=== PATIENT | female | born 1990 | race Caucasian/White ===

== ENCOUNTER 2018-04-28 08:00 | Outpatient (CLI) | payer OTHER ==
[2018-04-28 16:31] LABS: MUDS CUTOFF CONCENTRATIONS CUTOFF CONC BELOW:
[2018-04-28 17:04] LABS: AMPHETAMINE SCREEN,URINE NEGATIVE (NEGATIVE); BENZODIAZEPINES SCREEN, URINE NEGATIVE (NEGATIVE); COCAINE SCREEN URINE NEGATIVE (NEGATIVE); METHADONE SCREEN, URINE NEGATIVE (NEGATIVE); METHAMPHETAMINES SCREEN, URINE NEGATIVE (NEGATIVE); OPIATE SCREEN, URINE NEGATIVE (NEGATIVE); OXYCODONE SCREEN, URINE NEGATIVE (NEGATIVE); PROPOXYPHENE SCREEN, URINE NEGATIVE (NEGATIVE); TRICYCLIC ANTIDEPRESSANT,URINE NEGATIVE (NEGATIVE)
== END 2018-04-28 08:01 | disposition home or self-care (01) ==
LOC: LAB.R 08:00
PROVIDERS: ATTEND Nurse Practitioner Obstetrics & Gynecology
DX: Z36.9 Encounter for antenatal screening, unspecified (principal); Z11.3 Encounter for screening for infections with a predominantly sexual mode of transmission
CPT/HCPCS: 80306; 87491; 87591

== ENCOUNTER 2018-06-22 12:38 | Outpatient (CLI) | payer OTHER ==
--- NOTE | 2018-06-22 15:54 | Ultrasound Report ---
Reason: ENCOUNTER FOR SCREENING,UNSPECIFIED Procedure Date: 06/22/2018 Accession Number: [id number] / [id number] Procedure: US - OB Detailed Eval CPT Code: FULL RESULT: EXAM: COMPLETE OBSTETRICAL ULTRASOUND EXAM DATE: 06/22/2018 03:18 PM. CLINICAL HISTORY: anatomic survey. COMPARISON: None. TECHNIQUE: Real-time sonographic evaluation of the fetus performed by the car detailer. Multiple u.s. representative static images were saved for review. DATING: EGA 19 weeks 5 days with NATHAN 11/11/2018 based on LMP. EGA 19 weeks 6 days with NATHAN 11/10/2018 based on the current ultrasound. GENERAL EVALUATION Guevara . Cardiac activity: 157 bpm. movement: Visualized. Presentation: Variable. Placenta: Anterior position. No evidence for previa. Umbilical cord: 3 vessel cord. Central placental cord origin. Amniotic fluid: Subjectively normal. MVP 4.5 cm. BIOMETRY Bi-Parietal Diameter (BPD): 4.7 cm, 20 weeks 0 days. Head Circumference (HC): 17 cm, 19 weeks 4 days. Abdominal Circumference (AC): 14.6 cm, 90 weeks 6 days. Femur Length (FL): 3.1 cm, 90 weeks 4 days. Estimated Weight: 312 gm, approximately the 40th percentile for 19 weeks 6 days.. ANATOMY The right renal pelvis measures 4.7 mm and the left renal pelvis measures 4.5 mm. The intracranial structures, profile, face/nose/lips, spine, 4 chamber heart and outflow tracts, stomach, abdominal wall and cord insertion, diaphragm, bladder, and extremities were visualized and demonstrate no abnormality. MATERNAL STRUCTURES Uterus: Unremarkable. Cervix: Long and closed. Transabdominal length 4.3 cm. Right ovary/adnexa: Unremarkable. Left ovary/adnexa: Unremarkable. Free fluid: None. IMPRESSION: 1. Guevara live intrauterine with gestational age 19 weeks 6 days based on current ultrasound. 2. Estimated weight is within expected limits for assigned dating. 3. Prominent renal pelvises measuring up to 4.7 mm, top normal for this gestational age. Otherwise, normal anatomic survey. Recommend attention on follow-up. RADIA
== END 2018-06-22 12:39 | disposition home or self-care (01) ==
LOC: DI 12:38
PROVIDERS: ATTEND Nurse Practitioner Obstetrics & Gynecology
DX: Z36.9 Encounter for antenatal screening, unspecified (principal)
CPT/HCPCS: 76811

== ENCOUNTER 2018-08-10 13:18 | Outpatient (CLI) | payer OTHER ==
[2018-08-10 15:53] LABS: BASOPHILS % (AUTO) 0.4 %; EOSINOPHILS # (AUTO) 0.1 10^3/uL (0.0-0.7); EOSINOPHILS % (AUTO) 0.6 %; HGB - HEMOGLOBIN 13.1 g/dL (12.0-16.0); LYMPHOCYTES # (AUTO) 1.9 10^3/uL (1.5-3.5); LYMPHOCYTES % (AUTO) 14.8 %; MEAN CORPUSCULAR HEMOGLOBIN 29.5 pg (27.0-31.0); MEAN CORPUSCULAR HGB CONC 33.2 g/dL (32.0-36.0); MEAN CORPUSCULAR VOLUME 88.9 fL (81.0-99.0); MEAN PLATELET VOLUME 10.5 fL (7.9-10.8); MONOCYTES # (AUTO) 0.5 10^3/uL (0.0-1.0); MONOCYTES % (AUTO) 3.7 %; NEUTROPHILS # (AUTO) 10.2 10^3/uL (1.5-6.6); NEUTROPHILS % (AUTO) 80.5 %; PLT - PLATELET COUNT 193 10^3/uL (130-450); RED BLOOD COUNT 4.43 10^6/uL (4.20-5.40); RED CELL DISTRIBUTION WIDTH 13.2 % (12.0-15.0); WHITE BLOOD COUNT 12.7 x10^3/uL (4.8-10.8)
== END 2018-08-10 13:19 | disposition home or self-care (01) ==
LOC: LAB 13:18
PROVIDERS: ATTEND Registered Nurse
DX: Z34.82 Encounter for supervision of other normal pregnancy, second trimester (principal)
CPT/HCPCS: 36415; 82950; 85025; 86850

== ENCOUNTER 2018-08-26 17:42 | Outpatient (CLI) | payer OTHER ==
[2018-08-26 18:40] VITALS: BP 126/74
== END 2018-08-26 18:20 | disposition home or self-care (01) ==
LOC: FBP 17:42 → WFO 17:42
PROVIDERS: ATTEND Registered Nurse
DX: O36.8130 Decreased fetal movements, third trimester, not applicable or unspecified (principal); Z3A.29 29 weeks gestation of pregnancy
CPT/HCPCS: 59025

== ENCOUNTER 2018-09-24 18:46 | Outpatient (CLI) | payer OTHER ==
--- NOTE | 2018-09-25 10:19 | Ultrasound Report ---
Reason: RENAL ANOMALY Procedure Date: 09/24/2018 Accession Number: [id number] / [id number] Procedure: US - OB F/U or Repeat CPT Code: FULL RESULT: EXAM: COMPLETE OBSTETRICAL ULTRASOUND EXAM DATE: 09/24/2018 07:41 PM. CLINICAL HISTORY: Followup of hydronephrosis. COMPARISON: 06/22/2018. TECHNIQUE: Real-time sonographic evaluation of the fetus performed by the oracle database analyst. Multiple asset protection representative static images were saved for review. DATING: Established EGA 33 weeks 0 days with NATHAN 11/12/2018 based on referring obstetric information. EGA 34 weeks 5 days with NATHAN 10/31/2018 based on the current ultrasound. GENERAL EVALUATION Guevara . Cardiac activity: 144 bpm. movement: Visualized. Presentation: Cephalic. Placenta: Anterior position. No evidence for previa. Amniotic fluid: SHAILESH 13.3 MVP 5.9 cm. BIOMETRY Bi-Parietal Diameter (BPD): 8.8 cm, 35 weeks 4 days Head Circumference (HC): 32.1 cm, 36 weeks 1 day Abdominal Circumference (AC): 28.6 cm, 32 weeks 4 days Femur Length (FL): 6.7 cm, 34 weeks 2 days Estimated Weight: 2262 g, 64th percentile for 33 weeks 0 days. ANATOMY Renal pelvises are dilated to 5.4 and 6.2 mm respectively. There is no associated calyceal dilation, defined as mild hydronephrosis/pyelectasis in this case. MATERNAL STRUCTURES Cervix: Long and closed. Transabdominal length 2.64 cm. IMPRESSION: 1. Guevara live intrauterine with gestational age 33 weeks 0 days based on obstetric provider information. 2. Estimated weight is within expected limits for assigned dating. 3. Persistent bilateral mild hydronephrosis with normal amniotic fluid. RADIA
== END 2018-09-24 18:47 | disposition home or self-care (01) ==
LOC: DI 18:46
PROVIDERS: ATTEND Nurse Practitioner Obstetrics & Gynecology
DX: O35.8XX0 Maternal care for other (suspected) fetal abnormality and damage, not applicable or unspecified (principal); Z3A.33 33 weeks gestation of pregnancy
CPT/HCPCS: 76816

== ENCOUNTER 2018-10-02 14:33 | Outpatient (CLI) | payer OTHER ==
[2018-10-02 14:57] VITALS: BP 116/81
[2018-10-02 15:15] LABS: BILIRUBIN,URINE NEGATIVE (NEGATIVE); CLARITY,URINE CLEAR (CLEAR); GLUCOSE, URINE (UA) NEGATIVE (NEGATIVE); KETONES,URINE (UA) >=80 mg/dL (NEGATIVE); LEUKOCYTE ESTERASE, URINE NEGATIVE (NEGATIVE); NITRITE,URINE NEGATIVE (NEGATIVE); OCCULT BLOOD,URINE NEGATIVE (NEGATIVE); PROTEIN,URINE NEGATIVE (NEGATIVE); UROBILINOGEN,URINE 0.2 (NORMAL) E.U./dL (NORMAL)
[2018-10-02] MEDS ORDERED: ONDANSETRON 4 MG/2 ML VIAL IVP PRN (15:19)
[2018-10-02] MEDS ORDERED: LACTATED RINGERS 1,000 ML IV ONE (15:25)
[2018-10-02] MEDS ORDERED: TERBUTALINE 1 MG/ML VIAL SUBQ ONE ×2 (15:25→15:28)
[2018-10-02] MEDS ORDERED: ONDANSETRON 4 MG/2 ML VIAL ONE (15:25)
[2018-10-02] MEDS ORDERED: SODIUM CHLORIDE FLUSH 0.9% 10 ML SYRINGE ONE (15:26)
[2018-10-02] MEDS: LACTATED RINGERS 1,000 ML IV ONE ×2 (15:33→16:45)
[2018-10-02 16:32] LABS: RUPTURE OF MEMBRANES PLUS NEGATIVE (NEGATIVE)
== END 2018-10-02 18:10 | disposition home or self-care (01) ==
LOC: WFO 14:33 → FBP 14:35 → WFO 18:10
PROVIDERS: ATTEND Registered Nurse
DX: O47.03 False labor before 37 completed weeks of gestation, third trimester (principal); Z3A.34 34 weeks gestation of pregnancy
CPT/HCPCS: 81003; 82731; 84112; 87081; 87181; 87480; 87510; 87660; 87797; 96361; 96372; 96374; 99214; J7120; 81001; 87086

== ENCOUNTER 2018-10-12 08:00 | Outpatient (CLI) | payer OTHER | END 2018-10-12 23:59 | disposition home or self-care (01) | LOC: LAB.R 08:00 | PROVIDERS: ATTEND Registered Nurse | DX: Z34.90 Encounter for supervision of normal pregnancy, unspecified, unspecified trimester (principal) | CPT/HCPCS: 87491; 87591 ==

== ENCOUNTER 2018-10-13 09:24 | Outpatient (CLI) | payer OTHER ==
[2018-10-14 12:52] LABS: HEPATITIS C ANTIBODY NON-REACTIVE (NON-REACTIVE)
[2018-10-14 14:52] LABS: HIV AG/AB 4TH GEN NON-REACTIVE (NON-REACTIVE)
== END 2018-10-13 09:25 | disposition home or self-care (01) ==
LOC: LAB 09:24
PROVIDERS: ATTEND Registered Nurse
DX: Z34.90 Encounter for supervision of normal pregnancy, unspecified, unspecified trimester (principal)
CPT/HCPCS: 36415; 81599; 86592; 86803; 87389

== ENCOUNTER 2018-11-05 07:45 | Inpatient (IN) | payer OTHER ==
[2018-11-05] MEDS ORDERED: SODIUM CHLORIDE FLUSH 0.9% 10 ML SYRINGE IVP PRN (08:07)
[2018-11-05] MEDS ORDERED: fentaNYL 100 MCG/2 ML VIAL IVP PRN (08:07)
[2018-11-05 08:54] LABS: BASOPHILS % (AUTO) 0.4 %; EOSINOPHILS % (AUTO) 0.4 %; HGB - HEMOGLOBIN 13.6 g/dL (12.0-16.0); LYMPHOCYTES # (AUTO) 1.5 10^3/uL (1.5-3.5); LYMPHOCYTES % (AUTO) 13.6 %; MEAN CORPUSCULAR HEMOGLOBIN 29.1 pg (27.0-31.0); MEAN CORPUSCULAR HGB CONC 34.5 g/dL (32.0-36.0); MEAN CORPUSCULAR VOLUME 84.4 fL (81.0-99.0); MEAN PLATELET VOLUME 11.5 fL (7.9-10.8); MONOCYTES # (AUTO) 0.6 10^3/uL (0.0-1.0); NEUTROPHILS # (AUTO) 8.5 10^3/uL (1.5-6.6); NEUTROPHILS % (AUTO) 79.6 %; PLT - PLATELET COUNT 141 10^3/uL (130-450); RED BLOOD COUNT 4.67 10^6/uL (4.20-5.40); RED CELL DISTRIBUTION WIDTH 14.1 % (12.0-15.0); WHITE BLOOD COUNT 10.7 x10^3/uL (4.8-10.8)
[2018-11-05] MEDS: SODIUM CHLORIDE FLUSH 0.9% 10 ML SYRINGE IVP SCH (08:56)
[2018-11-05] MEDS: ONDANSETRON 4 MG/2 ML VIAL IVP PRN (08:56)
[2018-11-05] MEDS: miSOPROStol 100 MCG TABLET BC SCH ×4 (09:01→23:36)
--- NOTE | 2018-11-05 09:37 | HISTORY & PHYSICAL EXAMINATION ---
Admit History - Visit Reason Visit Reason: Other (preinduction cervical ripening for induction of labor, logistic) - : 2 Parity: 0 Premature: 0 Ectopic: 0 : 1 Care: positive: [facility] Risk/History: positive: None Complications This : positive: Other (mood disorder) Smoking Status: Light tobacco smoker - Mother's Labs Mother's Blood Type: positive: O Mother's RH: positive: Positive GBS: positive: Group B Strep Positive Rubella Status: positive: Immune Meds/Allgy - Allergies Allergies/Adverse Reactions: Allergies Allergy/AdvReac Type Severity Reaction Status Date / Time No Known Drug Allergies Allergy Verified 08/26/18 18:36 Review of Systems - Constitutional Constitutional: reports: Fatigue. denies: Fever, Chills - Eyes Eyes: denies: Blurred vision, Spots in vision, Dipolpia - Cardiovascular Cariovascular: denies: Irregular heart rate, Palpitations, Chest pain, Edema - Respiratory Respiratory: denies: Cough, Wheezing, SOB at rest, SOB with exertion - Gastrointestinal Gastrointestinal: reports: Nausea. denies: Abdominal pain, Constipation, Diarrhea, Vomiting - Genitourinary Genitourinary: reports: Frequency, Urgency. denies: Dysuria - Musculoskeletal Musculoskeletal: reports: Back pain. denies: Muscle pain, Muscle aches - Integumentary Integumentary: denies: Rash, Pruritis, Lesions - Neurological Neurological: denies: General weakness, Focal weakness, Headache - Psychiatric Psychiatric: reports: Depression, Anxiety - All Other Systems All Other Systems: reports: Reviewed and negative Physical - Abdominal Exam Contraction Frequency (min/apart): 6-8 Contraction Intensity: positive: Mild Uterine Resting Tone: positive: Soft - Monitoring Heart Rate Baseline: 135 Strip Review: positive: Category I - Presentation Presentation: positive: Vertex - Vaginal Exam Membranes: positive: Membranes intact Dilation (in cm): 2 Effacement (%): 80 Station: positive: 0 Cervical Position: positive: Midposition (soft) - Speculum Exam Speculum Exam Performed: positive: No Findings: negative: Gross leak - Other Notes Labor Progress Note/Additional Text: Hanh Marcano is a 27 y/o @ 39 weeks' EGA by first trimester US who received consistent care t/o her . Her care was complicated by a pre-existing mood disorder, for which she had taken herself off all medication w/ knowledge of . Her mood began to deteriorate in the late 2nd trimester & she resumed bupropion & titrated to effective dose of 300mg XL po daily & resumed fluoxetine & titrated to effective dose of 60mg po daily; her mood has since been stable, although she does have intermittent episodes of anxiety, for which she has utilized hydroxyzine po w/ good response. She was very anxious last night & struggled to sleep. She presents today w/ request for elective induction of labor to facilitate delivery during the time when her family can be present to assist her & to maximize pp time w/ assistance from her before he deploys. She has been fully counseled & PARQ for misoprostol cervical ripening has been held; informed consent has been obtained. Her pregn oren has been further complicated by persistent b/l renal pelviectasis w/ most recent dilatation evaluated 09/28/2018: 5.2mm & 6.4mm. Her will need inpatient assessment of output & pediatric f/u to ensure resolution. Her screening labs were all WNL during the course of labor, with the exception of a positive GBS screening @ 36 weeks' gestation. She intends epidural anesthesia for discomfort, plans to breastfeed & is expecting a male , whom she intends to name "jarret." PMH: Depression & anxiety, requiring Abilify for mood stabilization prior to pre gnancy PSH: Appendectomy 1999, w/o complication OBhx: TAB first trimester, no complication GYNhx: Denies hx of STI, no hx abnormal paps; Hx VVC SocHx: Recently resigned from employment secondary to discomfort & mood d/o; to Jon, denies DV; significant mental health hx, presently stable w/ m edical management, occasional tobacco use when very anxious, much less than a weekly cigarette, denies ETOH/drug use Famhx: Significant mental health/substance use hx PE: GEN: AAOX3, NAD [place] GRAVID FEMALE HEENT: GROSSLY NORMOCEPHALIC, ATRAUMATIC, CORRECTIVE LENSES RESP: CTA B/L T/O CARDIAC: RRR NLS1S2, GR 1/6 SYSTOLIC EJECTION MURMUR, NO RUB/GALLOP ABD: GRAVID, NT; LIE LONGITUDINAL, PRESENTATION CEPHALIC, EFW 8# OB: EFM bL 135BPM, +ACCELS, NO DECELS, MOD BOB; TOCO: UCS Q 6-8 MIN, PALP MILD, NON-PAINFUL : NO LESION, NO D/C; SVE: 2/80/0, MID SOFT MS: FROM T/O, NO DEFORMITY/ERYTHEMA/EDEMA NEURO: NO FOCAL DEFICIT SKIN: C/D/I, WARM, WELL-PERFUSED, NO LESION PSYCH: PLEASANTLY CONVERSANT; NORMAL MOOD & AFFECT Plan for Labor - Plan For Labor I expect patient to be DC'd or transferred within 96 hours.: Yes Plan for Labor: 1. Admit to obs for cervical ripening, inpt for ROM/active labor 2. misoprostol 50mcg BC q 4 hours per protocol 3. ranitidine 150mg po BID for GERD, may also have promethazine, as ondansetron did not manage her nausea this morning 4. cbc/clot to hold, iv insertion 5. GBS prophylaxis w/ IV PCN w/ ROM/active labor per protocol 6. Analgesia/anesthesia PRN per pt request; pt is aware of all options 7. I will reassess her cervical status x4 hours, earlier PRN 8. Reviewed plan of care w/ pt, partner, family @ bedside & RN @ bedside; all in agreement, without concerns
[2018-11-05] MEDS ORDERED: PROMETHAZINE 25 MG TABLET PO PRN (09:50)
[2018-11-05] MEDS: buPROPion XL 150 MG TABLET PO SCH (10:38)
[2018-11-05] MEDS: FLUoxetine 10 MG CAPSULE PO SCH (10:38)
--- NOTE | 2018-11-05 13:26 | PROVIDER PROGRESS NOTE ---
Labor Progress Note - Uterine Monitoring Uterine Monitoring Mode: positive: External toco Contraction Frequency (min/apart): 2-6 Contraction Intensity: positive: Mild Uterine Resting Tone: positive: Soft - Monitoring Monitor Mode: positive: External ultrasound Heart Rate Baseline: 135 Heart Rate Variability: positive: Moderate (6-25 bmp) Accelerations: positive: Present, 15x15 Decelerations: positive: None Strip Review: positive: Category I - Vaginal Exam Dilation (in cm): 2 Effacement (%): 80 Station: 0 Cervical Position: Midposition (soft) - Labor Progress Note Labor Progress Note/Additional Text: S: Hanh reports increased cramping & tightness w/ her notable uterine contr actions. She denies LOF/Changes in vaginal d/c or vaginal bleeding. She declines analgesia @ this time & is aware of her options. She is resting quietly in bed w/ her , Jon, and her mother & [id number] are at the bedside & involved & very supportive. She reports moderate nausea w/o emesis when ambulating w/o relief w/ ranitidine; she declined promethazine & declines any additional intervention @ this time. O: AAOx3, NAD WA gravid female VSS BP 129/82 HR 87 RR 18 SPO2 100% EFM: BL 135bpm, +accels, no decels, mod simon TOCO: UCs q2-6 min x60-80 seconds, palp mild SVE: 2/80/0, midposition, soft, IBOW A: 27 y/o @ 39 weeks' gestation by first trimester US; logistic IOL per pt request Unfavorable cervical status w/ preinduction cervical ripening w/ buccal misoprostol S/P 1 dose buccal misoprostol w/o significant cervical change Unabated nausea w/o vomiting; pt w/o desire for intervention @ this time Adequate pain control w/o analgesia/anesthesia GBS pos w/ IBOW FHTs cat I P: 1. Continue misoprostol 50mcg BC q 4 hours per protocol 2. Encouraged maternal rest 3. Revisited options for nausea management, available PRN 4. Begin IV PCN for IPAP w/ ROM or active labor 5. Analgesia/anesthesia PRN per pt request 6. Reviewed plan of care w/ pt, family & RN @ bedside; all in agreement, without concerns
--- NOTE | 2018-11-05 18:02 | PROVIDER PROGRESS NOTE ---
Labor Progress Note - Uterine Monitoring Uterine Monitoring Mode: positive: External toco Contraction Frequency (min/apart): 3-5 Contraction Intensity: positive: Mild to moderate Uterine Resting Tone: positive: Soft - Monitoring Monitor Mode: positive: External ultrasound Heart Rate Variability: positive: Absent; amplitude undetectable (135) Accelerations: positive: Present, 15x15 Decelerations: positive: None Strip Review: positive: Category I - Vaginal Exam Dilation (in cm): 2 Effacement (%): 80 Station: 0 - Labor Progress Note Labor Progress Note/Additional Text: Called by bedside RN for clinical update @ 1730, pt reportedly kelsie q1-4 minutes @ that time, misoprostol due >4 hours since last dose, dose held for frequency of uterine contractions. Now to bedside for evaluation as follows: S: Hanh reports feeling more discomfort & particularly pressure w/ her uterine contractions. No changes in vaginal d/c, no vb, no LOF. Does not desire analgesia @ this time. & his mother/her mother @ bedside; involved & very supportive. She is looking forward to her evening meal. Nausea has abated. O: AAOx3, NAD WA gravid female VS: BP 122/80, HR 96 RR 18 SPO2 100% EFM BL 135bpm, +accels, no decels, mod simon TOCO: UCs q3-5 min x 80-100 seconds, palp mod SVE: 2/80/0 IBOW, ant, soft A: 27 y/o @ 39 weeks' EGA by first trimester US, logistic IOL per pt request s/p 2 doses buccal misoprostol 50mcg for preinduction cervical ripening, minimal cervical change Mild uterine contractions, no active labor Adequate pain control w/o analgesia/anesthesia GBS + w/ IBOW FHTs cat I P: 1. Continue buccal misoprostol 50mcg q 4 hours per protocol 2. Reviewed maternal diversionary activity, expectations for cervical ripening, importance of patient/persistent process 3. Reviewed AROM & implications of setting of nulliparity/GBS pos, will wait until s/p first dose PCN and achievemet of active, progressive cervical change 4. Pt aware of analgesia/anesthesia options, may have PRN 5. GBS prophylaxis w/ IV PCN w/ ROM or active labor 6. Reassess cervical status x4 hours, earlier PRN 7. Reviewed plan of care w/ pt, family & RN @ bedside; all in agreement, without concerns.
[2018-11-06] MEDS ORDERED: SODIUM CHLORIDE FLUSH 0.9% 10 ML SYRINGE IVP PRN (03:14)
[2018-11-06] MEDS: LACTATED RINGERS 1,000 ML IV SCH ×2 (03:37→08:25)
[2018-11-06] MEDS: SODIUM CHLORIDE FLUSH 0.9% 10 ML SYRINGE IVP SCH (03:37)
[2018-11-06] MEDS: ONDANSETRON 4 MG/2 ML VIAL IVP PRN (03:38)
[2018-11-06] MEDS ORDERED: PENICILLIN G POTASSIUM 5,000,000 UNIT in SODIUM CHLORIDE 0.9% MINIBAG 100 ML IV ONE (03:48)
[2018-11-06] MEDS ORDERED: ROPIVACAINE 0.2% PF 20 ML AMPULE ONE (04:18)
[2018-11-06] MEDS ORDERED: fentaNYL 100 MCG/2 ML VIAL ONE (04:18)
[2018-11-06] MEDS ORDERED: BUPIVACAINE 0.75% MPF 30 ML VIAL ONE (04:45)
[2018-11-06] MEDS ORDERED: SODIUM CHLORIDE 0.9% 250 ML IV ONE (04:45)
[2018-11-06] MEDS ORDERED: fentaNYL 250 MCG/5 ML VIAL ONE (04:46)
[2018-11-06] MEDS ORDERED: METOCLOPRAMIDE 10 MG/2 ML VIAL IVP PRN ×2 (04:59→05:00)
[2018-11-06] MEDS ORDERED: diphenhydrAMINE INJ 50 MG/ML VIAL IVP PRN ×2 (04:59→05:00)
[2018-11-06] MEDS ORDERED: ePHEDrine 50 MG/ML VIAL IVP PRN ×2 (04:59→05:00)
[2018-11-06] MEDS ORDERED: NALBUPHINE 10 MG/ML AMP IVP PRN ×2 (04:59→05:00)
[2018-11-06] MEDS ORDERED: ONDANSETRON 4 MG/2 ML VIAL IVP PRN ×2 (04:59→05:00)
[2018-11-06] MEDS ORDERED: NALOXONE 0.4 MG/ML VIAL IVP PRN ×2 (04:59→05:00)
[2018-11-06] MEDS ORDERED: LACTATED RINGERS 500 ML IV ONE ×2 (04:59→05:00)
[2018-11-06] MEDS ORDERED: fent/BUPIV 2 MCG/0.125% 250 ML EP PRN (05:00)
--- NOTE | 2018-11-06 06:03 | ANESTHESIA ---
Pre-Anesthesia VS, & Labs - Diagnosis term labor, IUP - Procedure SHAHRZAD Vital Signs: Temp Pulse Resp BP Pulse Ox 37.1 C 85 18 129/82 H 100 11/05/18 12:10 11/05/18 12:10 11/05/18 12:10 11/05/18 12:10 11/05/18 12:10 Height 5 ft 9 in Weight (kg) 96.615 kg - NPO >8 hours Last Fluid Intake: t/o day - Is Patient ?: Yes - Lab Results Current Lab Results: Laboratory Tests 11/05/18 08:25: WBC 10.7, RBC 4.67, Hgb 13.6, Hct 39.5, MCV 84.4, MCH 29.1, MCHC 34.5, RDW 14.1, Plt Count 141, MPV 11.5 H, Neut # (Auto) 8.5 H, Lymph # (Auto) 1.5, [place] # (Auto) 0.6, Eos # (Auto) 0.0, Baso # (Auto) 0.0, Absolute Nucleated RBC 0.03, Nucleated RBC % 0.3 Lab results reviewed: Yes Fish Bones: 11/05/18 08:25 Home Medications and Allergies Active Medications Acetaminophen (Tylenol) 650 mg PO Q6H PRN PRN Reason: Pain or Fever Bupropion HCl (Wellbutrin Xl) 300 mg PO DAILY COUNT INCLUDES THE [facility] Last Admin: 11/05/18 10:38 Dose: Not Given Diphenhydramine HCl (Benadryl Inj) 12.5 - 25 mg IVP Q6HR PRN PRN Reason: ITCHING Ephedrine Sulfate () 5 mg IVP Q5M PRN PRN Reason: For SBP<100;give until SBP>100 Fentanyl (Fentanyl) 50 mcg IVP Q1H PRN PRN Reason: PAIN Fluoxetine HCl (Prozac) 60 mg PO DAILY COUNT INCLUDES THE [facility] Last Admin: 11/05/18 10:38 Dose: Not Given Lactated Ringer's (Lr) 1,000 mls @ 150 mls/hr IV .Q6H40M COUNT INCLUDES THE [facility] Last Admin: 11/06/18 03:37 Dose: 150 mls/hr Penicillin G Potassium 2,500, (000 unit/ Sodium Chloride) 100 mls @ 200 mls/hr IV Q4HR COUNT INCLUDES THE [facility] Fentanyl/Bupivacaine/Sodium Chlor (Fent/Bupiv 2 Mcg/0.125%) 250 mls @ 0 mls/hr EP .Q0M PRN; Protocol PRN Reason: PAIN Metoclopramide HCl (Reglan Inj) 10 mg IVP Q6HR PRN PRN Reason: Nausea / Vomiting Last Admin: 11/06/18 05:46 Dose: 10 mg Misoprostol (Cytotec) 50 mcg BC Q4HR COUNT INCLUDES THE [facility] Last Admin: 11/05/18 23:36 Dose: 50 mcg Nalbuphine HCl (Nubain) 2.5 - 5 mg IVP Q4H PRN PRN Reason: ITCHING Naloxone HCl (Narcan) 0.1 mg IVP Q2M PRN PRN Reason: RR<8 Ondansetron HCl (Zofran Inj) 4 mg IVP Q6HR PRN PRN Reason: Nausea / Vomiting Multivit/Folic Acid/Iron (Trinatal Rx 1) 1 tab PO DAILYWM COUNT INCLUDES THE [facility] Promethazine HCl (Phenergan) 25 mg PO Q6HR PRN PRN Reason: Nausea / Vomiting Ranitidine HCl (Zantac) 150 mg PO BID COUNT INCLUDES THE [facility] Last Admin: 11/05/18 23:37 Dose: Not Given Sodium Chloride (Normal Saline Flush 0.9%) 10 ml IVP PRN PRN PRN Reason: NEEDED PER PROVIDER ORDERS Sodium Chloride (Normal Saline Flush 0.9%) 10 ml IVP 0100,0900,1700 COUNT INCLUDES THE [facility] Last Admin: 11/06/18 05:51 Dose: 10 ml Allergies/Adverse Reactions: Allergies Allergy/AdvReac Type Severity Reaction Status Date / Time No Known Drug Allergies Allergy Verified 08/26/18 18:36 Anes History & Medical History - Medical History Smoking Status: Light tobacco smoker - Surgical History General: Appendectomy - Obstetrical History : 2 Parity: 0 Events: positive: None Complications: positive: Other (mood disorder) Exam General: Alert, Oriented x3, Cooperative Dental: WNL Mouth Openin Fingerbreadth Neck Mobility: Normal Mallampati classification: II Thyromental Distance: 4-6 cm Respiratory: No respiratory distress Cardiovascular: Regular rate Mental/Cognitive Status: Alert/Oriented X3, Normal for patient Cognitive Status: Within normal limits Plan Anesthesia Type: Epidural Consent for Procedure(s) Verified and Reviewed: Yes Code Status: Attempt Resuscitation ASA classification: 2-Mild systemic disease Is this case an emergency?: No
[2018-11-06] MEDS ORDERED: LIDOCAINE-PF 2% 10 ML AMP SUBQ ONE (06:41)
--- NOTE | 2018-11-06 06:59 | PROVIDER PROGRESS NOTE ---
Labor Progress Note - Uterine Monitoring Uterine Monitoring Mode: positive: External toco Contraction Frequency (min/apart): 1-4 Contraction Intensity: positive: Moderate Uterine Resting Tone: positive: Soft - Monitoring Monitor Mode: positive: External ultrasound Heart Rate Baseline: 135 Heart Rate Variability: positive: Moderate (6-25 bmp) Accelerations: positive: Present, 15x15 Decelerations: positive: None Strip Review: positive: Category I - Vaginal Exam Dilation (in cm): deferred - Labor Progress Note Labor Progress Note/Additional Text: TC from RN to review current pt status; pt uncomfortable w/ uterine contractions, declines intervention @ this time, thinks she may use tub, kelsie too frequently for next administration of misoprostol as scheduled. FHTs consistently cat I, will continue to monitor & administer if contractions space out to >q4 minutes. IBOW. GBS pos, initiate PCN w/ ROM. Pt aware of options for pain management, will attempt hydrotherapy. RN articulates full understanding & has no questions/concerns. Pt declines assessment by provider @ this time.
--- NOTE | 2018-11-06 07:03 | PROVIDER PROGRESS NOTE ---
Labor Progress Note - Uterine Monitoring Uterine Monitoring Mode: positive: External toco Contraction Frequency (min/apart): 1-4 Contraction Intensity: positive: Moderate Uterine Resting Tone: positive: Soft - Monitoring Monitor Mode: positive: External ultrasound Heart Rate Baseline: 140 Heart Rate Variability: positive: Moderate (6-25 bmp) Accelerations: positive: Present, 15x15 Decelerations: positive: None Strip Review: positive: Category I - Vaginal Exam Dilation (in cm): deferred - Labor Progress Note Labor Progress Note/Additional Text: TC from RN for clinical update: pt utilizing hydrotherapy, which was initially effective, now feels she would like to trial nitrous oxide for pain management. Continues to contract q1-4 minutes, painful for pt. She reports pain 7-8/10, having more difficulty coping. IBOW. FHTs remain cat I. VSS. Plan at this time is to admit pt to inpt status to allow pt to have epidural anesthesia per her request. If contractions become less frequent, will initiate Pitocin infusion to ensure consistent contraction pattern. RN to assess cervical status & initiate PCN for GBS prophylaxis per protocol if there has been cervical change. RN articulated full understanding & has no questions/concerns. Pt declines assessment by provider @ this time.
--- NOTE | 2018-11-06 07:06 | PROVIDER PROGRESS NOTE ---
Labor Progress Note - Uterine Monitoring Uterine Monitoring Mode: positive: External toco Contraction Frequency (min/apart): 2-4 Contraction Intensity: positive: Moderate Uterine Resting Tone: positive: Soft - Monitoring Monitor Mode: positive: External ultrasound Heart Rate Baseline: 135 Heart Rate Variability: positive: Moderate (6-25 bmp) Accelerations: positive: Present, 15x15 Decelerations: positive: None Strip Review: positive: Category I - Vaginal Exam Dilation (in cm): 3-4 Effacement (%): 80 Station: 0 (per RN) Cervical Position: Anterior - Labor Progress Note Labor Progress Note/Additional Text: TC from RN s/p epidural placement to notify me of SROM for CAF. Pt s/p epidural placement, remains uncomfortable, anesthesia called to bedside to evaluate. Pt hoping to sleep. VSS EFM consistently cat I. Elpidio q1-4, SVE per RN 3- 4/80/0. S/P loading dose of PCN. Will await pt comfort & then re-evaluate to determine need for Pitocin infusion. Minimize SVE now that pt has ROMed, continue GBS prophylaxis w/ IV PCN per protocol. RN articulates full understanding & has no further questions/concerns. Insert indwelling catheter until 2nd stage labor to facilitate descent.
--- NOTE | 2018-11-06 07:08 | ANESTHESIA PROCEDURE NOTE ---
Anesthesia Epidural Template - Other Comments Other Comments: Called to evaluate epidural for pt c/o pain with contractions. Pt had T-10 level on right side, no level on left side. Epidural dosed with total of 10ml 0.2%PF lidocaine. She reported improvement of pain, 3/10. Discussed replacement of epidural if unable to adequately block left side. Will continue to monitor.
[2018-11-06] MEDS ORDERED: PENICILLIN G POTASSIUM 2,500,000 UNIT in SODIUM CHLORIDE 0.9% 100ML 100 ML IV SCH (08:00)
[2018-11-06] MEDS ORDERED: OXYTOCIN/SODIUM CHLORIDE 500 ML IV SCH (08:00)
[2018-11-06] MEDS: miSOPROStol 100 MCG TABLET BC SCH (08:29)
[2018-11-06] MEDS ORDERED: SODIUM CHLORIDE FLUSH 0.9% 10 ML SYRINGE IVP SCH (09:00)
--- NOTE | 2018-11-06 09:16 | PROVIDER PROGRESS NOTE ---
Labor Progress Note - Uterine Monitoring Uterine Monitoring Mode: positive: External toco Contraction Frequency (min/apart): 2-4 Contraction Intensity: positive: Moderate Uterine Resting Tone: positive: Soft - Monitoring Monitor Mode: positive: External ultrasound Heart Rate Baseline: 135 Heart Rate Variability: positive: Moderate (6-25 bmp) Accelerations: positive: Present, 15x15 Decelerations: positive: None Strip Review: positive: Category I - Vaginal Exam Dilation (in cm): Ant Lip Effacement (%): 100 Station: 1 Cervical Position: Anterior - Labor Progress Note Labor Progress Note/Additional Text: S: Hanh is now comfortable w/ her new epidural. Family @ bedside, supportive O: AAox3, NAD [place] gravid female VSS EFM: BL 135bpm, +accels, no decels, mod simno TOCO: UCs q 2-4 minutes x80-100 seconds, palp strong Ongoing leakage of CAF, +bloody show; SVE: ant lip/100/1 A: 27 y/o @ 39w1d, active labor s/p misoprostol x3 buccal doses of 50mcg each for preinduction cervical ripening, no further augmentation necessary SROM x3.75 hours, afebrile Progressive cervical change Adequate pain control w/ epidural anesthesia GBS pos s/p 2 doses IV PCN for prophylaxis FHTs cat I P: 1. Encouraged maternal rest 2. Reassess cervical status x2 hours, earlier PRN 3. Continue GBS prophylaxis w/ IV PCN per protocol 4. Anticipate 2nd stage shortly 5. Reviewed plan of care w/ pt, family & RN @ bedside; all in agreement, without concerns
[2018-11-06] MEDS: FLUoxetine 10 MG CAPSULE PO SCH (09:28)
[2018-11-06] MEDS: buPROPion XL 150 MG TABLET PO SCH (09:30)
[2018-11-06] MEDS: PRENATAL VITAMIN TABLET PO SCH (09:31)
[2018-11-06] MEDS ORDERED: HYDROCORTISONE 1% CREAM 28 GM TUBE PR PRN (10:40)
[2018-11-06] MEDS ORDERED: WITCH HAZEL/GLYCERIN 1 EACH MED..PAD TOP PRN (10:40)
[2018-11-06] MEDS ORDERED: MAGNESIUM HYDROXIDE 2,400 MG/30 ML UDC PO PRN (10:40)
--- NOTE | 2018-11-06 10:54 | DELIVERY NOTE ---
Delivery Note - Labor Labor: positive: Other (preinduction cervical ripening w/ 3 doses 50mcg misoprostol only, no oxytocin administration) - Infant Delivery Method Delivery Method: positive: Spontaneous vaginal delivery - Cervical Ripening Method Cervical Ripening Method: positive: Misoprostil (x3 total buccal doses) - Presentation Presentation: positive: RODRIGUEZ - right occiput anterior - Nuchal Cord Nuchal Cord: positive: None - Anesthetic Anesthetic Type: - Amniotic Fluid Description Amniotic Fluid Description: positive: Clear - Episiotomy Type Episiotomy Type: positive: None - Laceration Laceration: positive: None - Delivery Outcome Delivery Outcome: positive: Livebirth - [place]: positive: Placed in direct skin contact with mother, Suctioned, Bulb syringe, Stimulated, Warmed, Sidell used sex: positive: Male - Cord Cord: positive: 3 vessels - Placenta Placenta: positive: Intact - Estimated Blood Loss Estimated Blood Loss (in cc): 150 - Post Delivery Events Post Delivery Events: positive: No post delivery events - Delivery Comments (Free Text/Narrative) Delivery Comments (Free Text/Narrative): Hanh Marcano is a 27 y/o [id number] who presented for logistic induction of labor @ 39 weeks' EGA by first trimester US; cervical status was unfavorable &, as a result, she underwent preinduction cervical ripening w/ 3 total doses of 50mcg buccal misoprostol, after which she entered active, spontaneous labor. She utilized hydrotherapy, self-administered inhaled nitrous oxide & epidural anesthesia w/ a total of 2 epidural placements for pain management. She experienced SROM for CAF @ 0530, for a total ruptured duration of ~5 hours. She received 2 total doses of IV PCN for GBS prophylaxis before delivery. FHTs were monitored electronically t/o & were consistently category I. She progressed w/o additional intervention to complete dilatation @ 0947, for a total first stage duration of 6 hours. She pushed w/ direction & spontaneous urge w/ excellent expulsive effort beginning @ 1003 to achieve viable male in RODRIGUEZ position over intact perineum @ 1021, for a total 2nd stage duration of 34 minutes w/ 18 minutes of active pushing. vigorous w/ spontaneous, lusty cry. Placed to maternal abd for drying/stim. Delayed cord clamping until cessation of pulsation, then cord clamped x2 by CNM, cut by FOB, 3VC noted, cord blood obtained. Active management of the 3rd stage w/ Pitocin in IV fluids; placenta delivered spont & intact, Millie, @ 1033, for a total 3rd stage duration of 12 minutes. Succinuriate lobe noted, entirely distinct from primary placentation. Vagina & perineum inspected & found to be intact; FF @ U-1. EBL 150mL. Mother & infant stable, apgars 8/9. Weight pending. Plans to breastfeed; infant nuzzling @ breast w/in 10 minutes of delivery.
[2018-11-06] MEDS ORDERED: OXYTOCIN/SODIUM CHLORIDE 500 ML IV ONE (12:13)
[2018-11-06] MEDS ORDERED: OXYTOCIN/SODIUM CHLORIDE 500 ML IV PRN (12:20)
[2018-11-06] MEDS: IBUPROFEN 800 MG TABLET PO SCH ×3 (15:02→20:27)
[2018-11-06 19:16] LABS: BASOPHILS % (AUTO) 0.1 %; EOSINOPHILS % (AUTO) 0.1 %; HGB - HEMOGLOBIN 12.6 g/dL (12.0-16.0); LYMPHOCYTES # (AUTO) 1.7 10^3/uL (1.5-3.5); LYMPHOCYTES % (AUTO) 10.7 %; MEAN CORPUSCULAR HEMOGLOBIN 29.1 pg (27.0-31.0); MEAN CORPUSCULAR HGB CONC 33.6 g/dL (32.0-36.0); MEAN CORPUSCULAR VOLUME 86.7 fL (81.0-99.0); MEAN PLATELET VOLUME 11.4 fL (7.9-10.8); MONOCYTES % (AUTO) 6.2 %; NEUTROPHILS # (AUTO) 13.1 10^3/uL (1.5-6.6); NEUTROPHILS % (AUTO) 82.9 %; PLT - PLATELET COUNT 130 10^3/uL (130-450); RED BLOOD COUNT 4.33 10^6/uL (4.20-5.40); RED CELL DISTRIBUTION WIDTH 14.1 % (12.0-15.0); WHITE BLOOD COUNT 15.9 x10^3/uL (4.8-10.8)
[2018-11-06] MEDS: ACETAMINOPHEN 325 MG TABLET PO PRN (20:26)
[2018-11-06] MEDS: DOCUSATE SODIUM 100 MG CAPSULE PO SCH (21:15)
[2018-11-07] MEDS ORDERED: LIDOCAINE-MPF 1% 30 ML VIAL ONE (00:26)
[2018-11-07] MEDS: IBUPROFEN 800 MG TABLET PO SCH ×3 (02:30→21:16)
[2018-11-07] MEDS: ACETAMINOPHEN 325 MG TABLET PO PRN ×3 (02:31→21:15)
[2018-11-07] MEDS: buPROPion XL 150 MG TABLET PO SCH (09:06)
[2018-11-07] MEDS: PRENATAL VITAMIN TABLET PO SCH (09:07)
[2018-11-07] MEDS: DOCUSATE SODIUM 100 MG CAPSULE PO SCH ×2 (09:07→21:16)
[2018-11-07] MEDS: FLUoxetine 10 MG CAPSULE PO SCH (09:08)
--- NOTE | 2018-11-07 13:54 | PROVIDER PROGRESS NOTE ---
Subjective - Prog Note Date Prog Note Date: 11/07/18 (PPD #1) Prog Note Time: 13:52 - Subjective Pt reports feeling: Improved (Overall doing well, tolerating diet, requesting something to help with sleep, has not slept much since admission.) Objective - Vital Signs/Intake & Output Vital Signs: Vital Signs x48h Temp Pulse Resp BP Pulse Ox 11/07/18 13:21 36.6 C 73 17 117/69 100 11/07/18 08:30 36.9 C 88 18 126/73 100 11/07/18 07:02 36.8 C 73 16 112/69 100 Intake & Output: Intake & Output 11/04/18 11/05/18 11/06/18 11/07/18 23:59 23:59 23:59 23:59 Intake Total 820 Output Total 1070 Balance -250 - Objective General Appearance: positive: No acute distress Abdomen: positive: Non-tender, No organomegaly Skin: positive: Color nml, No rash Extremities: positive: Non-tender, Full ROM, Nml appearance, No pedal edema, Other (no calf tenderness) Comments/Other: Normal lochia. PP HCT 37% - Lab Results Fish Bones: 11/06/18 19:10 Other Labs: Lab Results x24hrs 11/06/18 Range/Units 19:10 WBC 15.9 H (4.8-10.8) x10^3/uL RBC 4.33 (4.20-5.40) 10^6/uL Hgb 12.6 (12.0-16.0) g/dL Hct 37.5 (37.0-47.0) % MCV 86.7 (81.0-99.0) fL MCH 29.1 (27.0-31.0) pg MCHC 33.6 (32.0-36.0) g/dL RDW 14.1 (12.0-15.0) % Plt Count 130 (130-450) 10^3/uL MPV 11.4 H (7.9-10.8) fL Neut # (Auto) 13.1 H (1.5-6.6) 10^3/uL Lymph # (Auto) 1.7 (1.5-3.5) 10^3/uL [place] # (Auto) 1.0 (0.0-1.0) 10^3/uL Eos # (Auto) 0.0 (0.0-0.7) 10^3/uL Baso # (Auto) 0.0 (0.0-0.1) 10^3/uL Absolute Nucleated RBC 0.00 x10^3/uL Nucleated RBC % 0.0 /100WBC Assessment/Plan - Problem List (1) (normal spontaneous vaginal delivery) Impression: PPD #1 S/P doing well, patient in good spirits with FOB and both her and FOB mom's in room. Rx vistaril 50 mg p.o. now then qpm prn sleep On wellbutrin and prozac, continue as medically needed. Peds feels medical needs for mother outweigh theoretic risk to . Routine care. Patient has Home Health Nurse to see as outpatient . Social Work consult ordered to assist with available resources as well.
[2018-11-07] MEDS: hydrOXYzine PAMOATE 25 MG CAPSULE PO PRN ×2 (14:00→23:39)
[2018-11-08] MEDS: ACETAMINOPHEN 325 MG TABLET PO PRN (09:00)
[2018-11-08] MEDS: buPROPion XL 150 MG TABLET PO SCH (09:01)
[2018-11-08] MEDS: IBUPROFEN 800 MG TABLET PO SCH (09:01)
[2018-11-08] MEDS: PRENATAL VITAMIN TABLET PO SCH (09:02)
[2018-11-08] MEDS: FLUoxetine 10 MG CAPSULE PO SCH (09:02)
[2018-11-08] MEDS: DOCUSATE SODIUM 100 MG CAPSULE PO SCH (09:02)
[2018-11-08 11:28] VITALS: BP 114/64
--- NOTE | 2018-11-08 11:31 | Discharge Plan ---
Discharge Plan Disposition: Home, Self Care Condition: Good Prescriptions: hydrOXYzine PAMOATE [Vistaril] 50 mg PO QPM PRN #30 capsule PRN Reason: Insomnia Ibuprofen [Motrin] 800 mg PO Q8H PRN 20 Days #60 tablet PRN Reason: Abdominal Pain Diet: Regular Shower Restrictions: No Driving Restrictions: Yes (SEE WRITTEN DISCHARGE INSTRUCTIONS) Weight Bearing: Full Weight Additional Instructions or Follow Up instructions: [facility] to Schedule Followin week follow-up 6 week follow-up Follow-Up Care: Home Health - RN No Smoking: If you smoke, Please STOP! Call for help. Follow-up with: Aby Carrillo CNM, ROBINA [Provider Admit Priv/Credential] - 2 Weeks (follow up with Aby Carrillo in 2 and 6 weeks . 2 week follow up for hx of anxiety and depression 6 week follow up for )
--- NOTE | 2018-11-08 11:45 | DISCHARGE SUMMARY ---
Discharge Summary Admit Date: 11/05/18 Discharge Date: 11/08/18 Discharging Provider: Scout Code Status: Attempt Resuscitation - DIAGNOSES Admission Diagnoses: 39 weeks gestation Induction of Labor Anxiety Depression Discharge Diagnoses with Status of Each Condition: care after vaginal delivery - HPI History of Present Illness: Hanh Marcano is a 27 y/o @ 39 weeks' EGA by first trimester US who received consistent care t/o her . Her care was complicated by a pre-existing mood disorder, for which she had taken herself off all medication w/ knowledge of . Her mood began to deteriorate in the late 2nd trimester & she resumed bupropion & titrated to effective dose of 300mg XL po daily & resumed fluoxetine & titrated to effective dose of 60mg po daily; her mood has since been stable, although she does have intermittent episodes of anxiety, for which she has utilized hydroxyzine po w/ good response. She was very anxious last night & struggled to sleep. She presents today w/ request for elective induction of labor to facilitate delivery during the time when her family can be present to assist her & to maximize pp time w/ assistance from her before he deploys. She has been fully counseled & PARQ for misoprostol cervical ripening has been held; informed consent has been obtained. Her pregna ncy has been further complicated by persistent b/l renal pelviectasis w/ most recent dilatation evaluated 09/28/2018: 5.2mm & 6.4mm. Her infant will need inpatient assessment of output & pediatric f/u to ensure resolution. Her screening labs were all WNL during the course of labor, with the exception of a positive GBS screening @ 36 weeks' gestation. She intends epidural anesthesia for discomfort, plans to breastfeed & is expecting a male infant, whom she intends to name "jarret." PMH: Depression & anxiety, requiring Abilify for mood stabilization prior to PSH: Appendectomy 1999, w/o complication OBhx: TAB first trimester, no complication GYNhx: Denies hx of STI, no hx abnormal paps; Hx VVC SocHx: Recently resigned from employment secondary to discomfort & mood d/o; to Jon, denies DV; significant mental health hx, presently stable w/ me dical management, occasional tobacco use when very anxious, much less than a weekly cigarette, denies ETOH/drug use Famhx: Significant mental health/substance use hx PE: GEN: AAOX3, NAD WA GRAVID FEMALE HEENT: GROSSLY NORMOCEPHALIC, ATRAUMATIC, CORRECTIVE LENSES RESP: CTA B/L T/O CARDIAC: RRR NLS1S2, GR 1/6 SYSTOLIC EJECTION MURMUR, NO RUB/GALLOP ABD: GRAVID, NT; LIE LONGITUDINAL, PRESENTATION CEPHALIC, EFW 8# OB: EFM bL 135BPM, +ACCELS, NO DECELS, MOD BOB; TOCO: UCS Q 6-8 MIN, PALP MILD, NON-PAINFUL : NO LESION, NO D/C; SVE: 2/80/0, MID SOFT MS: FROM T/O, NO DEFORMITY/ERYTHEMA/EDEMA NEURO: NO FOCAL DEFICIT SKIN: C/D/I, WARM, WELL-PERFUSED, NO LESION PSYCH: PLEASANTLY CONVERSANT; NORMAL MOOD & AFFECT Plan for Labor - Plan For Labor I expect patient to be DC'd or transferred within 96 hours.: Yes Plan for Labor: 1. Admit to obs for cervical ripening, inpt for ROM/active labor 2. misoprostol 50mcg BC q 4 hours per protocol 3. ranitidine 150mg po BID for GERD, may also have promethazine, as ondansetron did not manage her nausea this morning 4. cbc/clot to hold, iv insertion 5. GBS prophylaxis w/ IV PCN w/ ROM/active labor per protocol 6. Analgesia/anesthesia PRN per pt request; pt is aware of all options 7. I will reassess her cervical status x4 hours, earlier PRN 8. Reviewed plan of care w/ pt, partner, family @ bedside & RN @ bedside; all in agreement, without concerns - CONSULTS | PROCEDURES Procedures: Induction of Labor Spontaneous Vaginal Delivery - HOSPITAL COURSE Hospital Course: Delivery Comments (Free Text/Narrative): Hanh Marcano is a 27 y/o [id number] who presented for logistic induction of labor @ 39 weeks' EGA by first trimester US; cervical status was unfavorable &, as a result, she underwent preinduction cervical ripening w/ 3 total doses of 50mcg buccal misoprostol, after which she entered active, spontaneous labor. She utilized hydrotherapy, self-administered inhaled nitrous oxide & epidural anesthesia w/ a total of 2 epidural placements for pain management. She experienced SROM for CAF @ 0530, for a total ruptured duration of ~5 hours. She received 2 total doses of IV PCN for GBS prophylaxis before delivery. FHTs were monitored electronically t/o & were consistently category I. She progressed w/o additional intervention to complete dilatation @ 0947, for a total first stage duration of 6 hours. She pushed w/ direction & spontaneous urge w/ excellent expulsive effort beginning @ 1003 to achieve viable male in RODRIGUEZ position over intact perineum @ 1021, for a total 2nd stage duration of 34 minutes w/ 18 minutes of active pushing. Infant vigorous w/ spontaneous, lusty cry. Placed to maternal abd for drying/stim. Delayed cord clamping until cessation of pulsation, then cord clamped x2 by CNM, cut by FOB, 3VC noted, cord blood obtai sharonda. Active management of the 3rd stage w/ Pitocin in IV fluids; placenta delivered spont & intact, Millie, @ 1033, for a total 3rd stage duration of 12 minutes. Succinuriate lobe noted, entirely distinct from primary placentation. Vagina & perineum inspected & found to be intact; FF @ U-1. EBL 150mL. Mother & infant stable, apgars 8/9. Weight pending. Plans to breastfeed; nuzzling @ breast w/in 10 minutes of delivery. The patient had an unremarkable course. Peds felt medical need for patient taking wellbutrin and prozac outweighed theoretical risk to with breast feeding. The mother has done very well from an obstetrical and medical standpoint. MARIA ELENA was consulted in house to help with educating patient about community resources. She also has Home Health nurse who is scheduled to see patient at home as well. - ALLERGIES Allergies/Adverse Reactions: Allergies Allergy/AdvReac Type Severity Reaction Status Date / Time No Known Drug Allergies Allergy Verified 08/26/18 18:36 - MEDICATIONS Home Medications: Ambulatory Orders Medication Instructions Recorded Confirmed Docusate Sodium 100 mg PO BID PRN 11/08/18 11/08/18 Ibuprofen [Motrin] 800 mg PO Q8H PRN 20 Days #60 11/08/18 tablet hydrOXYzine PAMOATE [Vistaril] 50 mg PO QPM PRN #30 capsule 11/08/18 - PHYSICAL EXAM AT DISCHARGE General Appearance: positive: No acute distress, Alert ENT: positive: ENT inspection nml Abdomen: positive: Non-tender, No organomegaly, No distention Back: positive: Nml inspection, CVA tenderness (R) Skin: positive: Color nml, No rash, Warm Extremities: positive: Non-tender, Full ROM, Nml appearance, No pedal edema Neurologic/Psychiatric: positive: Oriented x3, CN's nml (2-12) Physical Exam Other/Comments: Ux firm U-4 and Non-Tender normal lochia - LABS Result Diagrams: 11/06/18 19:10 - FOLLOW UP Follow Up: Follow Up in [facility] with Aby BEJARANOM: 2 weeks given hx of anxiety/depression 6 weeks routine postartum Call clinic sooner if any questions or concerns. - TIME SPENT Time Spent in Discharge (Minutes): 45
--- NOTE | 2018-11-08 13:48 | Labor Flowsheet ---
Labor Flowsheet Datetime Report Generated by CPN: 11/08/2018 13:48 Datetime: 11/08/2018 11:21 VITAL SIGNS NBP Sys/[place]/Mean (mmHg): 114 : 64 : 75 Pulse: 83 LaborFlag: Labor Datetime: 11/08/2018 08:29 SpO2 (%): 99 Datetime: 11/06/2018 10:22 Medication Comments: pitocin started, open to bolus Datetime: 11/06/2018 10:21 UTERINE ACTIVITY Monitor Mode: External Frequency (min): pt had constant urge to push Quality: Strong Duration (sec): pt pushing 5-15 sec intervals Pattern: Normal: <= 5 Contractions in 10 Minutes Resting Tone (Palpate): Relaxed ASSESSMENT A Monitor Mode: Telemetry Comments: Pt pushing. Difficult to determine HR. FHT audible 120-140 inbetween pushing. Datetime: 11/06/2018 10:15 FHR Baseline Rate : 125 Variability: Moderate 6-25 bpm Accelerations: 15X15 Category: Category II Datetime: 11/06/2018 10:06 Respirations: 18 Temperature (C): 37.0 Datetime: 11/06/2018 10:01 I/O Interventions: Pena Discontinued Patient Care Comments: removed 10cc urine output Datetime: 11/06/2018 10:00 Decelerations: Early Datetime: 11/06/2018 09:47 VAGINAL EXAM Dilatation (cm): 10.0 Effacement (%): 100 Station: 1 Exam by: SPiyush Foley, RN Vaginal Bleeding: Normal Show Cervix, Position: Anterior Datetime: 11/06/2018 09:11 Patient Position/Activity: Left Tilt Datetime: 11/06/2018 09:07 Vaginal Exam Comments: Plan to recheck pt in 2 hrs unless pt has urge to push before then per Provi carlee Datetime: 11/06/2018 09:06 Communication Comments: CNM Milagrosa @BS Datetime: 11/06/2018 09:00 MEDICATIONS Antibiotics: Penicillin IV (Units) @ 2.5 Datetime: 11/06/2018 08:18 Anesthesia Comments: rate decreased by GRAIN ELEVATOR OPERATOR Aube Datetime: 11/06/2018 08:15 FHR Baseline Changes: No Baseline Change Datetime: 11/06/2018 07:45 MATERNAL ASSESSMENT Level of Consciousness: Fully Conscious Headache: Denies Nausea/Vomiting: Denies RUQ Epigastric Pain: Denies Datetime: 11/06/2018 07:44 Oxygen Method: Room Air Datetime: 11/06/2018 07:34 Epidural Procedure Other: Pump Started Datetime: 11/06/2018 07:21 Epidural Procedure: Test Dose Datetime: 11/06/2018 07:20 Provider Notified (Name): Milsgrosa CNM Notification Reason: Status Update Datetime: 11/06/2018 07:18 PROCEDURE TIME OUT Procedure Verify: Correct Patient Identity; Correct Side and Site are Marked; Accurate Procedure Co nsent Form; Agreement on Procedure to be Done; Correct Patient Position ANESTHESIA Anesthesia Plans: Epidural Epidural Positioning: Sitting Datetime: 11/06/2018 07:09 COMMUNICATION Communication: Provider at Bedside Datetime: 11/06/2018 07:04 Cervix, Consistency: Soft Datetime: 11/06/2018 06:51 PAIN Pain Scale: 5 Pain Presence: Intermittent Pain Type: Contraction; Pressure Pain Location: Abdomen; Perineum Datetime: 11/06/2018 05:20 Stage of : Labor Datetime: 11/06/2018 05:15 Pain Relief Measures: Epidural Given Pain Coping: Breathing Through Contractions Datetime: 11/06/2018 05:00 Membrane Status: Ruptured Membranes Rupture Method: Spontaneous Amniotic Fluid Color: Clear Amniotic Fluid Amount: Small Amniotic Fluid Odor: Normal Nitrazine: Positive Datetime: 11/06/2018 04:55 Anesthesia Level Check: T11 Datetime: 11/06/2018 03:52 Pain Assessment Comments: Pt using nitrous at this time Datetime: 11/06/2018 03:39 PATIENT CARE IV/Blood Work: IV Infusing per Order; New IV Bag Hung Datetime: 11/06/2018 02:23 Comfort Measures: Hot Shower/Tub/Spa Datetime: 11/05/2018 23:38 Cervical Ripening Agents: Cytotec @ Datetime: 11/05/2018 21:50 Hygiene: Shae Care Datetime: 11/05/2018 19:31 Breath Sounds, Left: Clear and Equal Breath Sounds, Right: Clear and Equal Datetime: 11/05/2018 17:47 Provider Reviewed Strip: Yes Datetime: 11/05/2018 15:28 Monitor Interventions for UA: [place] Adjusted Datetime: 11/05/2018 11:00 Contraction Comments: ctx pattern difficult to determine d/t pt bouncing on birthing ball. Approxi mation given. Datetime: 11/05/2018 10:33 Monitor Interventions for FHR: Ultrasound Adjusted Datetime: 11/05/2018 09:16 Strip Reviewed by: CNM Milagrosa
== END 2018-11-08 12:50 | disposition home or self-care (01) | DRG 807 ==
LOC: WFO 07:45 → FBP 08:07 → OBSVTOIN 11-06 03:10
PROVIDERS: ADMIT Registered Nurse; ATTEND Registered Nurse
PROC: 10E0XZZ Delivery of Products of Conception, External Approach (ICD-10-PCS; principal; 2018-11-06)
PROC: 3E0P7VZ Introduction of Hormone into Female Reproductive, Via Natural or Artificial Opening (ICD-10-PCS; 2018-11-06)
DX: O99.824 Streptococcus B carrier state complicating childbirth (principal); Z37.0 Single live birth; Z3A.39 39 weeks gestation of pregnancy; O99.334 Smoking (tobacco) complicating childbirth; F17.200 Nicotine dependence, unspecified, uncomplicated; O99.344 Other mental disorders complicating childbirth; F32.9 Major depressive disorder, single episode, unspecified; F41.9 Anxiety disorder, unspecified; Z90.49 Acquired absence of other specified parts of digestive tract
CPT/HCPCS: 36415; 85025; 96374

== ENCOUNTER 2019-01-05 13:39 | Outpatient (CLI) | payer OTHER | END 2019-01-05 13:40 | disposition home or self-care (01) | LOC: LAB 13:39 | PROVIDERS: ATTEND Registered Nurse | DX: Z00.00 Encounter for general adult medical examination without abnormal findings (principal) | CPT/HCPCS: 36415; 84443 ==

== ENCOUNTER 2019-03-06 03:10 | Outpatient (CLI) | payer OTHER | END 2019-03-06 03:11 | disposition critical access hospital (66) | LOC: EMS 03:10 | PROVIDERS: ATTEND Surgery | DX: R07.9 Chest pain, unspecified (principal); R10.10 Upper abdominal pain, unspecified; R11.2 Nausea with vomiting, unspecified | CPT/HCPCS: A0425; A0429 ==

== ENCOUNTER 2019-03-06 03:29 | Emergency (ER) | payer OTHER ==
--- NOTE | 2019-03-06 04:17 | ED Physician Documentation ---
PD HPI ABD PAIN - Stated complaint Stated Complaint: ABD PAIN - Chief complaint Chief Complaint: Abd Pain - History obtained from History obtained from: Patient - History of Present Illness Timing - onset: Enter time (02:00), Today Timing - details: Abrupt onset, Now resolved Quality: Pain Location: Epigastric Radiation: Lower back, Left flank, Right flank Improved by: Other (nothing) Worsened by: Other (no exacerbagting factors) Associated symptoms: Nausea, Vomiting. No: Fever, Diarrhea, Constipation Similar symptoms before: Has not had sx before Recently seen: Not recently seen - Additional information Additional information: four months post-. Approximately 2 AM she was breast feeding her baby when she had sudden onset pain across upper abdomen/low chest that radiated around both flanks to mid-level back, associated with nausea vomiting. Improved en route to ED, and is now asymptomatic Review of Systems Constitutional: reports: Reviewed and negative Cardiac: reports: Reviewed and negative Respiratory: reports: Reviewed and negative GI: reports: Abdominal Pain, Nausea, Vomiting. denies: Constipation, Diarrhea : denies: Dysuria, Frequency PD PAST MEDICAL HISTORY - Past Medical History Past Medical History: Yes Psych: Depression, Anxiety - Past Surgical History Past Surgical History: Yes General: Appendectomy - Present Medications Home Medications: Ambulatory Orders Medication Instructions Recorded Confirmed buPROPion [Wellbutrin Sr] 0 mg PO DAILY 03/06/19 03/06/19 - Allergies Allergies/Adverse Reactions: Allergies Allergy/AdvReac Type Severity Reaction Status Date / Time No Known Drug Allergies Allergy Verified 03/06/19 03:34 - Social History Does the pt smoke?: No Smoking Status: Former smoker Does the pt drink ETOH?: Yes Substance Use and Type: Marijuana - Immunizations Immunizations are current?: Yes PD ED PE NORMAL - Vitals Vital signs reviewed: Yes - General General: Alert and oriented X 3, No acute distress, Well developed/nourished - Cardiac Cardiac: RRR, No murmur - Respiratory Respiratory: No respiratory distress, Clear bilaterally - Abdomen Abdomen: Soft, Non tender, Non distended - Back Back: No CVA TTP Results - Vitals Vitals: Vital Signs - 24 hr 03/06/19 03/06/19 03/06/19 03:31 03:35 06:53 Temperature 36.1 C L Heart Rate 74 65 Respiratory 16 16 14 Rate Blood Pressure 110/71 109/63 O2 Saturation 97 98 Oxygen O2 Source Room air - Labs Labs: Laboratory Tests 03/06/19 03/06/19 06:00 06:00 WBC 6.9 RBC 4.19 L Hgb 12.7 Hct 37.4 MCV 89.1 MCH 30.2 MCHC 33.9 RDW 13.5 Plt Count 196 MPV 9.2 Neut # (Auto) 4.7 Lymph # (Auto) 1.6 [place] # (Auto) 0.3 Eos # (Auto) 0.1 Baso # (Auto) 0.0 Absolute Nucleated RBC 0.00 Nucleated RBC % 0.0 Sodium 140 Potassium 4.0 Chloride 110 Carbon Dioxide 22 Anion Gap 8.0 BUN 12 Creatinine 0.8 Estimated GFR (MDRD) 87 L Glucose 98 Calcium 9.0 Total Bilirubin 0.6 AST 16 ALT 22 Alkaline Phosphatase 45 Total Protein 6.7 Albumin 3.9 Globulin 2.8 Albumin/Globulin Ratio 1.4 Lipase 33 - Rads (name of study) RUQ US Radiology: Prelim report reviewed, See rad report PD MEDICAL DECISION MAKING - ED course Complexity details: reviewed results, re-evaluated patient, considered differential, d/w patient Departure - Departure Disposition: 01 Home, Self Care Clinical Impression: Biliary colic Condition: Good Instructions: ED Gallstone W Biliary Colic Follow-Up: NAIA MCPHERSON MD [Primary Care Provider] - Thomas Saldana MD [Provider Admit Priv/Credential] - Discharge Date/Time: 03/06/19 06:58
[2019-03-06 06:12] LABS: BASOPHILS % (AUTO) 0.5 %; EOSINOPHILS # (AUTO) 0.1 10^3/uL (0.0-0.7); EOSINOPHILS % (AUTO) 1.8 %; HGB - HEMOGLOBIN 12.7 g/dL (12.0-16.0); LYMPHOCYTES # (AUTO) 1.6 10^3/uL (1.5-3.5); LYMPHOCYTES % (AUTO) 23.3 %; MEAN CORPUSCULAR HEMOGLOBIN 30.2 pg (27.0-31.0); MEAN CORPUSCULAR HGB CONC 33.9 g/dL (32.0-36.0); MEAN CORPUSCULAR VOLUME 89.1 fL (81.0-99.0); MEAN PLATELET VOLUME 9.2 fL (7.9-10.8); MONOCYTES # (AUTO) 0.3 10^3/uL (0.0-1.0); MONOCYTES % (AUTO) 5.1 %; NEUTROPHILS # (AUTO) 4.7 10^3/uL (1.5-6.6); NEUTROPHILS % (AUTO) 69.3 %; PLT - PLATELET COUNT 196 10^3/uL (130-450); RED BLOOD COUNT 4.19 10^6/uL (4.20-5.40); RED CELL DISTRIBUTION WIDTH 13.5 % (12.0-15.0); WHITE BLOOD COUNT 6.9 x10^3/uL (4.8-10.8)
--- NOTE | 2019-03-06 06:16 | Ultrasound Report ---
Reason: RUQ pain Procedure Date: 03/06/2019 Accession Number: [id number] / [id number] Procedure: US - Abdomen Limited CPT Code: FULL RESULT: EXAM: ABDOMEN ULTRASOUND LIMITED, RUQ EXAM DATE: 03/06/2019 05:44 AM. CLINICAL HISTORY: Right upper quadrant abdominal pain. COMPARISON: None. TECHNIQUE: Real-time scanning was performed with static images obtained. FINDINGS: Liver: Mild increased echogenicity. No suspicious focal lesion. Liver measures 17.7 cm in length. Portal Vein: Patent with hepatopetal flow. Gallbladder: Mildly distended with sludge and stones. No pathologic wall thickening. No pericholecystic fluid. Biliary System: CBD measures 4.6 mm. No intrahepatic or extrahepatic ductal dilatation. Pancreas: Normal appearing head and body. Other portions are obscured by overlying structures. Right Kidney: Visualized portions of the right kidney are without significant abnormality. Right kidney measures 10.7 cm in length. Other: None. IMPRESSION: 1. Multiple gallstones without acute cholecystitis. No pathologic biliary dilation. 2. Mild hepatic steatosis. Mild splenomegaly. RADIA
[2019-03-06 06:25] LABS: ALBUMIN 3.9 g/dL (3.2-5.5); ALBUMIN/GLOBULIN RATIO 1.4 (1.0-2.2); BILIRUBIN,TOTAL 0.6 mg/dL (0.2-1.0); CREATININE 0.8 mg/dL (0.4-1.0); TOTAL PROTEIN 6.7 g/dL (6.7-8.2)
[2019-03-06 06:54] VITALS: BP 109/63
== END 2019-03-06 06:58 | disposition home or self-care (01) ==
LOC: EDUNIT# → ED 03:29
DX: K80.20 Calculus of gallbladder without cholecystitis without obstruction (principal); K76.0 Fatty (change of) liver, not elsewhere classified; R16.1 Splenomegaly, not elsewhere classified; Z87.891 Personal history of nicotine dependence
CPT/HCPCS: 36415; 76705; 80053; 83690; 85025; 99283

== ENCOUNTER 2020-03-30 10:40 | Outpatient (CLI) | payer OTHER ==
--- NOTE | 2020-03-30 12:41 | XRAY Report ---
PROCEDURE: Ankle 3 View RT INDICATIONS: ANKLE PAIN,RIGHT TECHNIQUE: 3 views of the ankle were acquired. COMPARISON: None. FINDINGS: Bones: No fractures or dislocations. Ankle mortise is normally aligned. No suspicious bony lesions . Soft tissues: No tibiotalar joint effusion. Achilles tendon appears normal. IMPRESSION: No trauma found, source of current pain is not seen. Reviewed by: Kris Watson MD on 03/30/2020 12:40 PM PDT Approved by: Kris Watson MD on 03/30/2020 12:40 PM PDT Station ID: [id number]
== END 2020-03-30 10:41 | disposition home or self-care (01) ==
LOC: DI 10:40
PROVIDERS: ATTEND Physician Assistant
DX: M25.571 Pain in right ankle and joints of right foot (principal)

== ENCOUNTER 2020-09-25 08:00 | Outpatient (CLI) | payer OTHER | END 2020-09-25 23:59 | disposition home or self-care (01) | LOC: LAB.R 08:00 | PROVIDERS: ATTEND Physician Assistant Medical | DX: B34.9 Viral infection, unspecified (principal); Z20.822 Contact with and (suspected) exposure to COVID-19 | CPT/HCPCS: 87275; 87276 ==

== ENCOUNTER 2021-07-25 09:34 | Outpatient (CLI) | payer OTHER ==
[2021-07-25 12:12] LABS: BASOPHILS # (AUTO) 0.1 10^3/uL (0.0-0.1); BASOPHILS % (AUTO) 0.7 %; EOSINOPHILS # (AUTO) 0.1 10^3/uL (0.0-0.7); EOSINOPHILS % (AUTO) 0.8 %; HCT - HEMATOCRIT 43.1 % (37.0-47.0); HGB - HEMOGLOBIN 14.3 g/dL (12.0-16.0); LYMPHOCYTES # (AUTO) 2.1 10^3/uL (1.5-3.5); LYMPHOCYTES % (AUTO) 29.8 %; MEAN CORPUSCULAR HEMOGLOBIN 29.7 pg (27.0-31.0); MEAN CORPUSCULAR HGB CONC 33.2 g/dL (32.0-36.0); MEAN CORPUSCULAR VOLUME 89.4 fL (81.0-99.0); MEAN PLATELET VOLUME 11.8 fL (7.9-10.8); MONOCYTES # (AUTO) 0.4 10^3/uL (0.0-1.0); MONOCYTES % (AUTO) 5.1 %; NEUTROPHILS # (AUTO) 4.6 10^3/uL (1.5-6.6); NEUTROPHILS % (AUTO) 63.3 %; PLT - PLATELET COUNT 239 10^3/uL (130-450); RED BLOOD COUNT 4.82 10^6/uL (4.20-5.40); RED CELL DISTRIBUTION WIDTH 11.3 % (12.0-15.0); WHITE BLOOD COUNT 7.2 x10^3/uL (4.8-10.8)
[2021-07-25 12:44] LABS: ALBUMIN 4.7 g/dL (3.2-5.5); ALBUMIN/GLOBULIN RATIO 2.2 (1.0-2.2); BILIRUBIN,TOTAL 0.8 mg/dL (0.2-1.0); CALCIUM 9.3 mg/dL (8.5-10.3); CREATININE 0.6 mg/dL (0.4-1.0); POTASSIUM 4.1 mmol/L (3.5-5.0); TOTAL PROTEIN 6.8 g/dL (6.7-8.2)
== END 2021-07-25 23:59 | disposition home or self-care (01) ==
LOC: LAB.WCP 09:34
PROVIDERS: ATTEND Physician Assistant Medical
DX: R10.30 Lower abdominal pain, unspecified (principal); Z20.822 Contact with and (suspected) exposure to COVID-19
CPT/HCPCS: 36415; 80053; 83690; 84702; 85025

== ENCOUNTER 2021-07-27 11:46 | Emergency (ER) | payer OTHER ==
[2021-07-27 13:35] LABS: BILIRUBIN,URINE NEGATIVE (NEGATIVE); GLUCOSE, URINE (UA) NEGATIVE (NEGATIVE); KETONES,URINE (UA) NEGATIVE (NEGATIVE); LEUKOCYTE ESTERASE, URINE NEGATIVE (NEGATIVE); NITRITE,URINE NEGATIVE (NEGATIVE); OCCULT BLOOD,URINE NEGATIVE (NEGATIVE); PROTEIN,URINE NEGATIVE (NEGATIVE); UROBILINOGEN,URINE 0.2 (NORMAL) E.U./dL (NORMAL)
[2021-07-27 13:38] LABS: CLARITY,URINE CLEAR (CLEAR); HCG UR QUAL NEGATIVE
[2021-07-27 13:39] LABS: BASOPHILS % (AUTO) 0.5 %; EOSINOPHILS # (AUTO) 0.1 10^3/uL (0.0-0.7); EOSINOPHILS % (AUTO) 0.9 %; HCT - HEMATOCRIT 43.9 % (37.0-47.0); HGB - HEMOGLOBIN 14.8 g/dL (12.0-16.0); LYMPHOCYTES # (AUTO) 2.5 10^3/uL (1.5-3.5); MEAN CORPUSCULAR HEMOGLOBIN 30.1 pg (27.0-31.0); MEAN CORPUSCULAR HGB CONC 33.7 g/dL (32.0-36.0); MEAN CORPUSCULAR VOLUME 89.2 fL (81.0-99.0); MONOCYTES # (AUTO) 0.4 10^3/uL (0.0-1.0); NEUTROPHILS # (AUTO) 5.5 10^3/uL (1.5-6.6); NEUTROPHILS % (AUTO) 64.5 %; PLT - PLATELET COUNT 246 10^3/uL (130-450); RED BLOOD COUNT 4.92 10^6/uL (4.20-5.40); RED CELL DISTRIBUTION WIDTH 11.4 % (12.0-15.0); WHITE BLOOD COUNT 8.6 x10^3/uL (4.8-10.8)
[2021-07-27 13:55] LABS: ALBUMIN 4.8 g/dL (3.2-5.5); ALBUMIN/GLOBULIN RATIO 1.8 (1.0-2.2); BILIRUBIN,TOTAL 0.8 mg/dL (0.2-1.0); CALCIUM 9.4 mg/dL (8.5-10.3); CREATININE 0.6 mg/dL (0.4-1.0); TOTAL PROTEIN 7.4 g/dL (6.7-8.2)
--- NOTE | 2021-07-27 14:11 | ED Physician Documentation ---
PD HPI FEMALE - Stated complaint Stated Complaint: NAUSEA/FEMALE - Chief complaint Chief Complaint: Abd Pain - History obtained from History obtained from: Patient - History of Present Illness Timing - onset: How many weeks ago (2) Timing - duration: Weeks (2) Timing - details: Gradual onset, Still present Associated symptoms: Pelvic pain Contributing factors: No: Similar symptoms before: Has not had sx before Recently seen: Not recently seen - Additional information Additional information: 30-year-old female has developed pain in the left lower quadrant of her abdomen in the pelvis and she states that it feels like there is something in there that is burning in nature. She is not having issue with vomiting or diarrhea. She is not having issue with constipation. She has not had fever. She is midcycle. She is not on control. She does not feel that she is . Review of Systems Constitutional: denies: Fever Ears: denies: Ear pain Nose: denies: Congestion Throat: denies: Sore throat Respiratory: denies: Cough GI: reports: Abdominal Pain. denies: Nausea, Vomiting : denies: Dysuria, Frequency Skin: denies: Rash Musculoskeletal: denies: Neck pain, Back pain, Extremity pain PD PAST MEDICAL HISTORY - Past Medical History Past Medical History: Yes Psych: Depression, Anxiety - Past Surgical History Past Surgical History: Yes General: Appendectomy - Present Medications Home Medications: Ambulatory Orders Medication Instructions Recorded Confirmed hydrOXYzine HCL [Hydroxyzine HCl] 10 mg PO HS PRN 07/27/21 07/27/21 - Allergies Allergies/Adverse Reactions: Allergies Allergy/AdvReac Type Severity Reaction Status Date / Time No Known Drug Allergies Allergy Verified 03/06/19 03:34 - Social History Does the pt smoke?: No Smoking Status: Never smoker Does the pt drink ETOH?: Yes Does the pt have substance abuse?: No - Immunizations Immunizations are current?: Yes PD ED PE NORMAL - Vitals Vital signs reviewed: Yes (hypertensive mild ) - General General: Alert and oriented X 3, No acute distress, Well developed/nourished - HEENT HEENT: Atraumatic, PERRL, EOMI - Neck Neck: Supple, no meningeal sign, No bony TTP - Cardiac Cardiac: RRR, No murmur - Respiratory Respiratory: No respiratory distress, Clear bilaterally - Abdomen Abdomen: Normal bowel sounds, Soft, Non distended, No organomegaly, Other (mild LLQ tenderness to palpation without garding or rebound. ) - Back Back: No CVA TTP, No spinal TTP - Derm Derm: Normal color, Warm and dry, No rash - Extremities Extremities: No deformity, No edema - Neuro Neuro: Alert and oriented X 3, bread racker 2-12 intact, No motor deficit, No sensory deficit, Normal speech Eye Opening: Spontaneous Motor: Obeys Commands Verbal: Oriented GCS Score: 15 - Psych Psych: Normal mood, Normal affect Results - Vitals Vitals: Vital Signs - 24 hr 07/27/21 07/27/21 12:04 14:16 Temperature 36.3 C L 97.3 C H Heart Rate 79 66 Respiratory 16 18 Rate Blood Pressure 123/85 H 127/83 H O2 Saturation 99 99 Oxygen O2 Source Room air - Labs Labs: Laboratory Tests 07/27/21 07/27/21 07/27/21 13:30 13:34 13:34 WBC 8.6 RBC 4.92 Hgb 14.8 Hct 43.9 MCV 89.2 MCH 30.1 MCHC 33.7 RDW 11.4 L Plt Count 246 MPV 11.0 H Neut # (Auto) 5.5 Lymph # (Auto) 2.5 Green # (Auto) 0.4 Eos # (Auto) 0.1 Baso # (Auto) 0.0 Absolute Nucleated RBC 0.00 Nucleated RBC % 0.0 Sodium 140 Potassium 4.0 Chloride 102 Carbon Dioxide 30 Anion Gap 8.0 BUN 9 Creatinine 0.6 Estimated GFR (MDRD) 119 Glucose 97 Calcium 9.4 Total Bilirubin 0.8 AST 13 ALT 15 Alkaline Phosphatase 63 Total Protein 7.4 Albumin 4.8 Globulin 2.6 Albumin/Globulin Ratio 1.8 Lipase 30 Urine Color YELLOW Urine Clarity CLEAR Urine pH 6.0 Ur Specific [place] >=1.030 H Urine Protein NEGATIVE Urine Glucose (UA) NEGATIVE Urine Ketones NEGATIVE Urine Occult Blood NEGATIVE Urine Nitrite NEGATIVE Urine Bilirubin NEGATIVE Urine Urobilinogen 0.2 (NORMAL) Ur Leukocyte Esterase NEGATIVE Ur Microscopic Review NOT INDICATED Urine Culture Comments NOT INDICATED Urine HCG, Qual NEGATIVE PD MEDICAL DECISION MAKING - ED course Complexity details: reviewed results, re-evaluated patient, considered differential, d/w patient ED course: 30-year-old female with midcycle pain and fullness of the left side has a hemorrhagic ovarian cyst on the left. I discussed with the patient the nature of ovarian cyst and recommended she follow-up with her primary or with RECREATIONAL THERAPY AIDE. She declines pain medication today. Departure - Departure Disposition: 01 Home, Self Care Clinical Impression: Hemorrhagic cyst of left ovary Condition: Stable Instructions: ED Cyst Ovarian Follow-Up: Sheron Li PA-C [Primary Care Provider] -
--- NOTE | 2021-07-27 16:00 | Ultrasound Report ---
PROCEDURE: Pelvic w/Transvag+Doppler Comp INDICATIONS: pelvic pain, L TECHNIQUE: Real-time scanning was performed of the pelvic organs, with image documentation. Additional endovagi nal scanning was necessary due to incomplete visualization of the adnexal and endometrial structures by transabdominal scanning. COMPARISON: None. FINDINGS: No pathologic free abdominal or pelvic fluid. Uterus: Uterus is normal in size at 8.3 x 3.5 x 4.8 cm. The endometrium measures 5 mm in combined t hickness. Uterine echotexture is heterogeneous without focal endometrial mass lesions. Nonspecific 4 x 6 mm ech ogenic foci within the endometrium likely representing a endometrial calcification. This may represen t sequela of prior trauma, infection, or instrumentation. Ovaries: Right ovary measures 3.4 x 1.9 x 2.5 cm with ovarian volume of approximately 9 mL. Left ova ry measures 3.3 x 2.3 x 2.0 cm with ovarian volume of approximately 8 mL. Vascular waveforms are pres ent bilaterally. There is a hemorrhagic cyst seen on the left measuring 1.4 x 1.5 x 1.1 cm. IMPRESSION: 1. No sonographic evidence for ovarian torsion. 2. A 1.5 cm left ovarian hemorrhagic cyst. Reviewed by: Gabe Mackenzie MD on 07/27/2021 3:59 PM PDT Approved by: Gabe Mackenzie MD on 07/27/2021 3:59 PM PDT Station ID: [id number]
[2021-07-27 16:03] VITALS: BP 116/82
== END 2021-07-27 16:01 | disposition home or self-care (01) ==
LOC: ED 11:46
DX: N83.202 Unspecified ovarian cyst, left side (principal)
CPT/HCPCS: 36415; 80053; 81001; 81003; 81025; 83690; 85025; 87086; 93975; 99282; 99284

== ENCOUNTER 2021-10-07 19:10 | Emergency (ER) | payer OTHER ==
[2021-10-07] MEDS ORDERED: METOCLOPRAMIDE 10 MG/2 ML VIAL IVP STA (20:11)
[2021-10-07] MEDS ORDERED: SODIUM CHLORIDE 0.9% 1,000 ML IV STA (20:11)
--- NOTE | 2021-10-07 20:22 | ED Physician Documentation ---
PD HPI NVD - Stated complaint Stated Complaint: VOMITTING (9WEEKS PREG) - Chief complaint Chief Complaint: Abd Pain - History obtained from History obtained from: Patient - Additonal information Additional information: 30 yo at 9w with N/V and unable to keep anything down since yesterday. Total of 5 weeks of nausea. Has tried NL zofran and mint s relief. No vag bleed. Review of Systems Constitutional: denies: Fever, Chills Ears: reports: Reviewed and negative Nose: reports: Reviewed and negative Throat: reports: Reviewed and negative PD PAST MEDICAL HISTORY - Past Medical History Psych: Depression, Anxiety - Past Surgical History Past Surgical History: Yes General: Appendectomy - Present Medications Home Medications: Ambulatory Orders Medication Instructions Recorded Confirmed hydrOXYzine HCL [Hydroxyzine HCl] 10 mg PO HS PRN 07/27/21 07/27/21 Ondansetron Odt [Zofran] 4 mg TL Q6H PRN #10 tablet 10/07/21 - Allergies Allergies/Adverse Reactions: Allergies Allergy/AdvReac Type Severity Reaction Status Date / Time No Known Drug Allergies Allergy Verified 10/07/21 19:43 - Social History Does the pt smoke?: No Smoking Status: Never smoker Does the pt drink ETOH?: Yes Does the pt have substance abuse?: No - Immunizations Immunizations are current?: Yes PD ED PE NORMAL - Vitals Vital signs reviewed: Yes - General General: Alert and oriented X 3, No acute distress - Abdomen Abdomen: Normal bowel sounds, Soft, Non tender - Female Female : Other (Bedside transabd sono demonstrates single live intrauterine with positive heart tones about 150, crown-rump length consistent with 9-week 3-day gestation.) - Neuro Neuro: Alert and oriented X 3, Normal speech Results - Vitals Vitals: Vital Signs - 24 hr 10/07/21 10/07/21 19:37 22:33 Temperature 36.4 C L 36.5 C Heart Rate 84 81 Respiratory 18 18 Rate Blood Pressure 118/72 120/71 O2 Saturation 100 99 Oxygen O2 Source Room air - Labs Labs: Laboratory Tests 10/07/21 20:22 Sodium 134 L Potassium 3.5 Chloride 102 Carbon Dioxide 19 L Anion Gap 13.0 BUN 9 Creatinine 0.6 Estimated GFR (MDRD) 119 Glucose 105 H Calcium 9.0 PD MEDICAL DECISION MAKING - ED course ED course: 30yo with hyperemesis gravidarum. No abd TTP or s/sx concerning for loss. Reassuring bedside sono. Feeling better after IVF/IV reglan and passed po challenge. Departure - Departure Disposition: Home, Self Care Clinical Impression: Hyperemesis gravidarum Condition: Good Record reviewed to determine appropriate education?: Yes Instructions: ED Preg Morning Sickness Prescriptions: Ondansetron Odt [Zofran] 4 mg TL Q6H PRN #10 tablet PRN Reason: Nausea / Vomiting Comments: Prescription sent electronically to [facility]. Return if worsening. Follow-up with OB as scheduled. Discharge Date/Time: 10/07/21 22:39
[2021-10-07 20:33] LABS: CREATININE 0.6 mg/dL (0.4-1.0); POTASSIUM 3.5 mmol/L (3.5-5.0)
[2021-10-07] MEDS ORDERED: ONDANSETRON ODT 4 MG Prepack 2 TL STA (22:10)
[2021-10-07 22:35] VITALS: BP 120/71
== END 2021-10-07 22:39 | disposition home or self-care (01) ==
LOC: ED 19:10
DX: O21.0 Mild hyperemesis gravidarum (principal); Z3A.09 9 weeks gestation of pregnancy
CPT/HCPCS: 36415; 80048; 96361; 96374; 99283; J2765

== ENCOUNTER 2021-10-10 18:45 | Outpatient (CLI) | payer OTHER ==
--- NOTE | 2021-10-10 20:38 | Ultrasound Report ---
PROCEDURE: OB First Trimester w/TV INDICATIONS: POSITIVE TEST OUTSIDE/PRIOR DATING DATA: Last menstrual period (LMP): 08/07/2021. LMP-based estimated date of delivery (NATHAN): 05/14/2022. First dating scan (date and location): Current study. Estimated date of delivery (NATHAN) from first dating scan: 05/13/2022. TECHNIQUE: Real-time scanning was performed of the fetus and maternal pelvic organs, with image documentation. Endovaginal scanning was also performed to better visualize the fetus and maternal ovaries. COMPARISON: None FINDINGS: Embryo: A single pole is present with an average crown-rump length of 2.51 cm corresponding to a 9 week 2 day +/- 6 day gestation. A yolk sac and unfused amnion are also present. Heart rate: 176 bpm. Maternal organs: The uterus is retroverted. The cervix is closed. Trace subchorionic hemorrhage, like ly implantation bleed. Ovaries appear normal. There is a corpus luteum on the right ovary with periph eral vascularity. IMPRESSION: 1. Single living intrauterine with a gestational age of 9 weeks, 2 days, and estimated due date of 05/13/2022, in good agreement with the clinically assigned gestational age. 2. Retroverted uterus. 3. Right ovarian corpus luteum. Reviewed by: Katt Delgadillo MD on 10/10/2021 8:36 PM PST Approved by: Katt Delgadillo MD on 10/10/2021 8:36 PM PST Station ID: [id number]
== END 2021-10-10 18:46 | disposition home or self-care (01) ==
LOC: DI 18:45
PROVIDERS: ATTEND Obstetrics & Gynecology
DX: O34.531 Maternal care for retroversion of gravid uterus, first trimester (principal); N85.4 Malposition of uterus; O34.81 Maternal care for other abnormalities of pelvic organs, first trimester; N83.11 Corpus luteum cyst of right ovary; Z3A.09 9 weeks gestation of pregnancy

== ENCOUNTER 2021-10-29 08:43 | Outpatient (CLI) | payer OTHER ==
[2021-10-30 20:35] LABS: BACTERIAL VAGINOSIS DNA POSITIVE (NEGATIVE); CANDIDA GLABRATA DNA NEGATIVE (NEGATIVE); CANDIDA GROUP DNA NEGATIVE (NEGATIVE); CANDIDA KRUSEI DNA NEGATIVE (NEGATIVE); TRICHOMONAS VAGINALIS DNA NEGATIVE (NEGATIVE)
== END 2021-10-29 08:44 | disposition home or self-care (01) ==
LOC: LAB 08:43
PROVIDERS: ATTEND Obstetrics & Gynecology
DX: N76.0 Acute vaginitis (principal)
CPT/HCPCS: 87661; 87801

== ENCOUNTER 2021-10-29 11:46 | Outpatient (CLI) | payer OTHER ==
[2021-10-29 18:03] LABS: BASOPHILS % (AUTO) 0.3 %; EOSINOPHILS # (AUTO) 0.1 10^3/uL (0.0-0.7); EOSINOPHILS % (AUTO) 0.5 %; HCT - HEMATOCRIT 39.6 % (37.0-47.0); HGB - HEMOGLOBIN 13.1 g/dL (12.0-16.0); LYMPHOCYTES # (AUTO) 1.7 10^3/uL (1.5-3.5); LYMPHOCYTES % (AUTO) 17.1 %; MEAN CORPUSCULAR HEMOGLOBIN 29.3 pg (27.0-31.0); MEAN CORPUSCULAR HGB CONC 33.1 g/dL (32.0-36.0); MEAN CORPUSCULAR VOLUME 88.6 fL (81.0-99.0); MEAN PLATELET VOLUME 12.5 fL (7.9-10.8); MONOCYTES # (AUTO) 0.3 10^3/uL (0.0-1.0); MONOCYTES % (AUTO) 3.3 %; NEUTROPHILS % (AUTO) 78.3 %; PLT - PLATELET COUNT 230 10^3/uL (130-450); RED BLOOD COUNT 4.47 10^6/uL (4.20-5.40); RED CELL DISTRIBUTION WIDTH 12.1 % (12.0-15.0); WHITE BLOOD COUNT 10.2 x10^3/uL (4.8-10.8)
[2021-10-29 18:07] LABS: BILIRUBIN,URINE NEGATIVE (NEGATIVE); GLUCOSE, URINE (UA) NEGATIVE (NEGATIVE); KETONES,URINE (UA) NEGATIVE (NEGATIVE); LEUKOCYTE ESTERASE, URINE SMALL (NEGATIVE); NITRITE,URINE NEGATIVE (NEGATIVE); OCCULT BLOOD,URINE NEGATIVE (NEGATIVE); PROTEIN,URINE NEGATIVE (NEGATIVE); UROBILINOGEN,URINE 0.2 (NORMAL) E.U./dL (NORMAL)
[2021-10-29 18:24] LABS: BACTERIA,URINE Few /HPF (None Seen); CLARITY,URINE HAZY (CLEAR); RBC,URINE 0-5 /HPF (0-5); SQUAMOUS EPITHELIAL CELL,UR FEW Squamous (<= Few); WBC,URINE 0-3 /HPF (0-5)
[2021-10-30 10:22] LABS: HEPATITIS B SURFACE ANTIGEN NON-REACTIVE (NON-REACTIVE); HEPATITIS C ANTIBODY NON-REACTIVE (NON-REACTIVE)
[2021-10-30 15:42] LABS: HIV AG/AB 4TH GEN NON-REACTIVE (NON-REACTIVE)
== END 2021-10-29 11:47 | disposition home or self-care (01) ==
LOC: LAB.N 11:46
PROVIDERS: ATTEND Obstetrics & Gynecology
DX: Z36.89 Encounter for other specified antenatal screening (principal); Z32.01 Encounter for pregnancy test, result positive
CPT/HCPCS: 36415; 81001; 85025; 86592; 86762; 86787; 86803; 86850; 86900; 86901; 87086; 87340; 87389

== ENCOUNTER 2021-12-31 18:25 | Emergency (ER) | payer OTHER ==
--- NOTE | 2021-12-31 18:56 | ED Physician Documentation ---
PD HPI UPPER EXT INJURY - Stated complaint Stated Complaint: LEFT PINKY INJURY - Chief complaint Chief Complaint: Trauma Ext - History obtained from History obtained from: Patient - History of Present Illness Location: Left Type of injury: Blunt / blow Where injury occurred: [place] Timing - onset: How many minutes ago (30) Timing - duration: Minutes (30) Pain level max: 7 Pain level now: 5 Recently seen: Not recently seen - Additonal information Additional information: 31-year-old female presents to the emergency department stating that she was playing kickball when the ball hit her left finger causing finger pain and deformity. She is about 21 weeks . Nothing makes it better. Worse with movement. No numbness or tingling. She is right-handed The injuries to the left fifth digit Review of Systems Constitutional: denies: Fever, Chills : reports: Now EGA (21 weeks) Skin: denies: Rash Musculoskeletal: denies: Neck pain, Back pain Neurologic: denies: Headache PD PAST MEDICAL HISTORY - Past Medical History Past Medical History: Yes Psych: Depression, Anxiety - Past Surgical History Past Surgical History: Yes General: Appendectomy - Present Medications Home Medications: Ambulatory Orders Medication Instructions Recorded Confirmed hydrOXYzine HCL [Hydroxyzine HCl] 10 mg PO HS PRN 07/27/21 07/27/21 Ondansetron Odt [Zofran] 4 mg TL Q6H PRN #10 tablet 10/07/21 - Allergies Allergies/Adverse Reactions: Allergies Allergy/AdvReac Type Severity Reaction Status Date / Time No Known Drug Allergies Allergy Verified 12/31/21 18:29 - Social History Does the pt smoke?: No Smoking Status: Never smoker Does the pt drink ETOH?: Yes Does the pt have substance abuse?: No - Immunizations Immunizations are current?: Yes PD ED PE NORMAL - Vitals Vital signs reviewed: Yes - General General: Alert and oriented X 3, No acute distress - HEENT HEENT: Moist mucous membranes - Neck Neck: Supple, no meningeal sign - Derm Derm: Warm and dry - Extremities Extremities: Other (Deformity to the left fifth digit. Neurovascular intact. Deformity at the PIP joint) - Neuro Neuro: Alert and oriented X 3 Results - Vitals Vitals: Vital Signs - 24 hr 12/31/21 12/31/21 18:29 20:19 Temperature 36.5 C 36.6 C Heart Rate 74 75 Respiratory 16 16 Rate Blood Pressure 115/67 123/78 O2 Saturation 98 100 Oxygen O2 Source Room air - Rads (name of study) Left fifth digit x-ray Radiology: Final report received, EMP read contemporaneously, See rad report Procedures - Reduction Body part reduced: Finger Fracture or dislocation: Fracture dislocation Anesthesia: Digital block Reduction aftercare: NV intact, Alignment improved, Splint applied, Patient tolerated well - Regional nerve block Nerve block site: Digital - note digit(s) (Left fifth digit) Right / left: Left Nerve block anesthesia: Lidocaine 2% Nerve block aftercare: Excellent anesthesia PD MEDICAL DECISION MAKING - ED course Complexity details: reviewed results, re-evaluated patient, considered dif ferential, d/w patient ED course: 31-year-old female with a left fifth digit dislocation and possible volar fracture. Digital block performed. Tolerated very well. Closed reduction performed with successful reduction of the dislocation. Able to bend the finger freely, neurovascularly intact. Placed in a splint with ashley tape. We will have her follow-up with her doctor for further care. Does not appear to have any significant tendon injury at this time. Patient counseled regarding signs and symptoms for which I believe and urgent re-evaluation would be necessary. Patient with good understanding of and agreement to plan and is comfortable going home at this time This document was made in part using voice recognition software. While efforts are made to proofread this document, sound alike and grammatical errors may occur. Departure - Departure Disposition: 01 Home, Self Care Clinical Impression: Dislocation, finger closed Qualifiers: Encounter type: initial encounter Qualified Code(s): S63.259A - Unspecified dislocation of unspecified finger, initial encounter Condition: Good Instructions: ED Dislocation Finger Redu Follow-Up: Sheron Li PA-C [Primary Care Provider] - Within 1 week Comments: Please follow-up with your doctor for repeat evaluation. Please continue to use the splint and/or ashley taping to help hold the area securely. Please return if you worsen. You can use Tylenol as needed for pain. There may be a small volar avulsion fracture, This should heal on its own, but it is important that you follow-up with your doctor for further evaluation. IMPRESSION: Dorsal and ulnar subluxation of the left fifth finger at the level of the proximal interphalangeal joint with suspected volar avulsion fracture fragment. Forms: Activity restrictions Discharge Date/Time: 12/31/21 20:20
--- NOTE | 2021-12-31 20:06 | XRAY Report ---
PROCEDURE: Finger(s) LT INDICATIONS: kickball vs finger TECHNIQUE: AP hand, 3 views of the left fifth finger(s) acquired. COMPARISON: None FINDINGS: Bones: There is ulnar and slight dorsal subluxation of the left fifth finger at the level of the prox imal interphalangeal joint with suspected curvilinear volume fracture fragment noted best on the late ral view. Appears to be on the volar surface at the base of the middle phalanx. No suspicious bony le sions. Soft tissues: No suspicious soft tissue calcifications. IMPRESSION: Dorsal and ulnar subluxation of the left fifth finger at the level of the proximal interphalangeal mariza int with suspected volar avulsion fracture fragment. Reviewed by: Gabe Rehman MD on 12/31/2021 8:05 PM PDT Approved by: Gabe Rehman MD on 12/31/2021 8:05 PM PDT Station ID: [id number]
[2021-12-31 20:20] VITALS: BP 123/78
== END 2021-12-31 20:20 | disposition home or self-care (01) ==
LOC: ED 18:25
DX: O9A.213 Injury, poisoning and certain other consequences of external causes complicating pregnancy, third trimester (principal); S63.257A Unspecified dislocation of left little finger, initial encounter; X58.XXXA Exposure to other specified factors, initial encounter; Y93.69 Activity, other involving other sports and athletics played as a team or group; Y92.830 Public park as the place of occurrence of the external cause; Z3A.21 21 weeks gestation of pregnancy
CPT/HCPCS: 99282

== ENCOUNTER 2022-01-01 15:23 | Outpatient (CLI) | payer OTHER ==
--- NOTE | 2022-01-02 11:24 | Ultrasound Report ---
PROCEDURE: OB Detailed Eval INDICATIONS: SUPERVISION OF OUTSIDE/PRIOR DATING DATA: Last menstrual period (LMP): August 07, 2021. LMP-based estimated date of delivery (NATHAN): May 14, 2022. First dating scan (date ): October 10, 2021. Estimated date of delivery (NATHAN) from first dating scan: May 13, 2022. TECHNIQUE: Real-time scanning was performed of the fetus, with image documentation and biometric measurements. COMPARISON: October 10, 2021. FINDINGS: General: A single living intrauterine gestation is present. Presentation: Breech Placenta: Placental position is and, without previa. Amniotic fluid index: 16.2 cm, appropriate for gestational age. heart rate: 136 beats per minute. Maternal cervical canal: 3.7 cm long; normal length is 2.5 cm or more. biometrics: Biparietal diameter: 5.1 cm Head circumference: 18.8 cm Abdominal circumference: 16.5 cm Femur length: 3.6 cm Estimated gestational age from initial scan: 21 weeks, 1 day. Composite gestational age from present scan: 21 weeks, 2 days Estimated weight and percentile: 429.2 g; 65th percentile Measurement variability in biometric dating: +/- 10 days from 12-20 weeks gestation, +/- 2 weeks from 20-30 weeks gestation, +/- 3 weeks at 30 weeks gestation or later. Anatomic survey: Neuro: Ventricles are normal at less than 10 mm. Cisterna magna is normal at 3-11 mm. Cerebellum i s normal in size and morphology. Nuchal skin fold: Normal at less than 6 mm between 14 and 20 weeks gestational age. Face: Nose and lips, facial profile are normal. Spine: Sacral region or visualized. Heart: 4-chambered heart is present, with normal ventricular outflow tracts. Diaphragm: Diaphragm is intact. Stomach: Left-sided stomach is present. Kidneys: No hydronephrosis. Normal is less than 5 mm in 2nd trimester, less than 7 mm in 3rd trimester. Cord: 3 vessel cord has orthotopic insertion. Bladder: Normal in size. Extremities: All 4 extremities are visualized. IMPRESSION: 1. Live single intrauterine gestation as detailed above. Reviewed by: Emile Nunez MD on 01/02/2022 11:23 AM PDT Approved by: Emile Nunez MD on 01/02/2022 11:23 AM PDT Station ID: [id number]
== END 2022-01-01 15:24 | disposition home or self-care (01) ==
LOC: DI 15:23
PROVIDERS: ATTEND Obstetrics & Gynecology
DX: Z34.92 Encounter for supervision of normal pregnancy, unspecified, second trimester (principal); Z36.89 Encounter for other specified antenatal screening

== ENCOUNTER 2022-02-19 09:17 | Outpatient (CLI) | payer OTHER ==
[2022-02-19 10:28] LABS: HCT - HEMATOCRIT 37.9 % (37.0-47.0); HGB - HEMOGLOBIN 12.8 g/dL (12.0-16.0); MEAN CORPUSCULAR HEMOGLOBIN 30.3 pg (27.0-31.0); MEAN CORPUSCULAR HGB CONC 33.8 g/dL (32.0-36.0); MEAN CORPUSCULAR VOLUME 89.6 fL (81.0-99.0); MEAN PLATELET VOLUME 11.3 fL (7.9-10.8); RED BLOOD COUNT 4.23 10^6/uL (4.20-5.40); RED CELL DISTRIBUTION WIDTH 12.2 % (12.0-15.0); WHITE BLOOD COUNT 11.1 x10^3/uL (4.8-10.8)
== END 2022-02-19 09:18 | disposition home or self-care (01) ==
LOC: LAB 09:17
PROVIDERS: ATTEND Obstetrics & Gynecology
DX: Z34.90 Encounter for supervision of normal pregnancy, unspecified, unspecified trimester (principal); Z36.89 Encounter for other specified antenatal screening
CPT/HCPCS: 36415; 82950; 85027

== ENCOUNTER 2022-04-19 08:00 | Outpatient (CLI) | payer OTHER | END 2022-04-19 23:59 | disposition home or self-care (01) | LOC: LAB.WC 08:00 | PROVIDERS: ATTEND Obstetrics & Gynecology | DX: Z34.90 Encounter for supervision of normal pregnancy, unspecified, unspecified trimester (principal); Z36.85 Encounter for antenatal screening for Streptococcus B | CPT/HCPCS: 87797 ==

== ENCOUNTER 2022-05-14 14:03 | Inpatient (IN) | payer OTHER ==
[2022-05-14] MEDS ORDERED: OXYTOCIN 10 UNIT/ML VIAL IM PRN (14:16)
[2022-05-14] MEDS ORDERED: hydrALAZINE INJ 20 MG/ML VIAL IVP PRN ×2 (14:16)
[2022-05-14] MEDS ORDERED: TERBUTALINE 1 MG/ML VIAL SUBQ PRN (14:16)
[2022-05-14] MEDS ORDERED: METHYLERGONOVINE 0.2 MG/ML VIAL IM PRN (14:16)
[2022-05-14] MEDS ORDERED: miSOPROStoL 200 MCG TABLET PR PRN (14:16)
[2022-05-14] MEDS ORDERED: CARBOPROST TROMETHAMINE 250 MCG/ML AMP IM PRN (14:16)
[2022-05-14] MEDS ORDERED: SODIUM CHLORIDE FLUSH 0.9% 10 ML SYRINGE IVP PRN (14:16)
[2022-05-14] MEDS ORDERED: miSOPROStoL 200 MCG TABLET BC PRN (14:16)
[2022-05-14] MEDS ORDERED: OXYTOCIN/SODIUM CHLORIDE 500 ML IV PRN (14:16)
[2022-05-14] MEDS ORDERED: lidocaine 1% 20 ML MDV ID PRN (14:16)
[2022-05-14] MEDS ORDERED: fentaNYL 100 MCG/2 ML VIAL IVP PRN (14:16)
[2022-05-14] MEDS ORDERED: NIFEdipine 10 MG CAPSULE PO PRN (14:16)
[2022-05-14] MEDS ORDERED: LABETALOL 20 MG/4 ML SYRINGE IVP PRN ×3 (14:16)
[2022-05-14] MEDS ORDERED: TRANEXAMIC ACID IN NACL 1,000 MG/100 ML BAG IV PRN (14:16)
[2022-05-14] MEDS ORDERED: SODIUM CHLORIDE FLUSH 0.9% 10 ML SYRINGE IVP SCH (15:00)
[2022-05-14 15:40] LABS: BASOPHILS % (AUTO) 0.3 %; EOSINOPHILS # (AUTO) 0.1 10^3/uL (0.0-0.7); EOSINOPHILS % (AUTO) 0.6 %; HCT - HEMATOCRIT 38.3 % (37.0-47.0); LYMPHOCYTES # (AUTO) 1.5 10^3/uL (1.5-3.5); LYMPHOCYTES % (AUTO) 12.9 %; MEAN CORPUSCULAR HEMOGLOBIN 29.5 pg (27.0-31.0); MEAN CORPUSCULAR HGB CONC 33.9 g/dL (32.0-36.0); MEAN CORPUSCULAR VOLUME 86.8 fL (81.0-99.0); MEAN PLATELET VOLUME 12.7 fL (7.9-10.8); MONOCYTES # (AUTO) 0.5 10^3/uL (0.0-1.0); MONOCYTES % (AUTO) 4.7 %; NEUTROPHILS # (AUTO) 9.2 10^3/uL (1.5-6.6); NEUTROPHILS % (AUTO) 80.5 %; PLT - PLATELET COUNT 155 10^3/uL (130-450); RED BLOOD COUNT 4.41 10^6/uL (4.20-5.40); RED CELL DISTRIBUTION WIDTH 13.2 % (12.0-15.0); WHITE BLOOD COUNT 11.5 x10^3/uL (4.8-10.8)
--- NOTE | 2022-05-14 16:35 | HISTORY & PHYSICAL EXAMINATION ---
Admit History - Smoking Status: Never smoker - Mother's Labs Mother's Blood Type: positive: O Mother's RH: positive: Positive GBS: positive: Group B Step Negative Rubella Status: positive: Immune - Other Maternal History Other Maternal History: HPI: 31-year-old at 40 weeks gestation here for induction of labor. She has good movement. Denies loss of fluid. No HANSON/BV or RUQP. No vaginal bleeding. Denies nausea and vomiting. Denies urinary urgency or dysuria. All other symptoms reviewed and were negative except per HPI. Course LMP: 08/07/2021 NATHAN by LMP: 05/14/2022 US Date 10/10/2021, US Age 9 weeks 2 days, NATHAN by ultrasound: 05/11/2022 Final NATHAN: 05/14/2022 by LMP consistent with 9-week ultrasound O pos/Rubella immune VZV: immune Genetic testing: Declines all testing, including carrier screen after extensive discussion FAS: on 01/01 WNL. EFW 429.2g/65th%tile. 3VC. SHAILESH normal. Grammatical error in reporting placenta and spine. Glucola:126 Influenza :10/29/2021 Covid vaccine: Comlpeted x2 Pfizer 12/06/2020 and 12/29/2020 TDAP: 03/04/22 GBS & GC/CT at 36.3- Negative HSV: Denies Breast pump Rx- has one she likes MOD:Anticipate , delivery at , partner will be back for 10 days, likely IOL around 05/14/22. pp contraception: Previously on Depo provera. Will consider further. Pap : 10/29/2021-NILM (shift in [place];BV) treated GCCT- Neg OB History 1. 7 week SAB 2. 11/06/2018, , 39 weeks, Past medical history Major depressive disorder Anxiety Insomnia Tinea versicolor Hemorrhagic ovarian cyst Past surgical history Appendectomy: 1999 Family history Father: Alcoholism, anxiety, depression Mother: Anxiety, depression Paternal grandmother: Alcoholism, anxiety, depression Maternal grandmother: Alcoholism, breast cancer Social history Denies tobacco, alcohol, drugs Allergies No known drug allergies Medications vitamins Physical exam: General: Alert, oriented, no acute distress Head: Normal cephalic atraumatic Eyes: PERRLA, extraocular motions intact. Respiratory: Normal rate of respiration. No accessory muscle use, normal respiratory effort. Cardiovascular: Regular rate and rhythm Abdomen: Gravid, nontender, nondistended Extremities: Normal range of motion Neuro: Oriented x3. Normal movements Psych: Appropriate mood and affect. Normal judgment and insight SVE: FHT: 145 bpm baseline, moderate variability, accelerations present, no decelerations [place]: occasional Plan 31-year-old at 40 weeks gestation admitted for induction of labor. 1. Induction of labor -Will admit for oxytocin induction 2. 40 weeks gestation Meds/Allgy - Home Medications Home Medications: Ambulatory Orders Medication Instructions Recorded Confirmed hydrOXYzine HCL [Hydroxyzine HCl] 10 mg PO HS PRN 07/27/21 07/27/21 Ondansetron Odt [Zofran] 4 mg TL Q6H PRN #10 tablet 10/07/21 - Allergies Allergies/Adverse Reactions: Allergies Allergy/AdvReac Type Severity Reaction Status Date / Time No Known Drug Allergies Allergy Verified 12/31/21 18:29 Physical - Abdominal Exam Vital Signs: Temp Pulse Resp BP Pulse Ox 98.1 F 85 18 123/81 H 05/14/22 15:17 05/14/22 15:17 05/14/22 15:17 05/14/22 15:17
[2022-05-14] MEDS: LACTATED RINGERS 1,000 ML IV SCH (17:40)
[2022-05-14] MEDS ORDERED: LACTATED RINGERS 1,000 ML ONE (17:46)
[2022-05-14] MEDS ORDERED: OXYTOCIN/SODIUM CHLORIDE 500 ML IV SCH (18:00)
[2022-05-15] MEDS: LACTATED RINGERS 1,000 ML IV SCH (03:17)
[2022-05-15] MEDS ORDERED: ROPIVACAINE 0.2% 200 MG/100 ML BAG EP ONE (07:09)
--- NOTE | 2022-05-15 07:45 | CONSULTATION NOTE ---
Consultation Report: Called for epidural placement for new sharp labor pains. Consent obtained. History of multiple failed epidurals with last labor including multiple placements by multiple providers. Pt to sitting, at bedside facing mom, active contractions causing restlessness. Attempt x2 at L4-5, attempt x2 at L3- 4, without success. A total of 15 mins attempting placement. Pt states contraction pain too strong to continue sitting. Epidural placement aborted, assist patient to supine where RN vaginal check reveals anterior lip and near full dilation. Patient elects to labor without regional anesthesia. N20 made available, notified.
[2022-05-15] MEDS ORDERED: DOCUSATE SODIUM 100 MG CAPSULE PO PRN (08:12)
[2022-05-15] MEDS ORDERED: SIMETHICONE CHEW 80 MG TABLET PO PRN (08:12)
--- NOTE | 2022-05-15 08:12 | DELIVERY NOTE ---
Delivery Note - Labor Labor: positive: Induced by oxytocin - Infant Delivery Method Delivery Method: positive: Spontaneous vaginal delivery - Presentation Presentation: positive: Compound, RODRIGUEZ - right occiput anterior (right hand) - Nuchal Cord Nuchal Cord: positive: Present, Reduced - Anesthetic Volume: positive: 2cc - Amniotic Fluid Description Amniotic Fluid Description: positive: Clear - Laceration Laceration: positive: 1st degree - Suture Suture Type: positive: Vicryl Suture Size: positive: 3-0 - Delivery Outcome Delivery Outcome: positive: Livebirth - [place]: positive: Placed in direct skin contact with mother sex: positive: Female - Cord Cord: positive: 3 vessels - Placenta Placenta: positive: Intact - Estimated Blood Loss Estimated Blood Loss (in cc): 150 - Post Delivery Events Post Delivery Events: positive: No post delivery events - Delivery Comments (Free Text/Narrative) Delivery Comments (Free Text/Narrative): Delivery note preoperative Diagnoses 40 weeks gestation Induction of labor Postoperative Diagnoses Same Status post spontaneous vaginal delivery Delivery Summary: Patient was admitted at 40 weeks gestation for induction of labor. Induction was started with oxytocin. Category 1 tracing throughout. Attempted epidural for pain control, but patient was too far along and cannot sit for epidural. Nitrous oxide for pain control. Patient checked and found to be complete. Patient was placed in the dorsal lithotomy position. Upon maternal pushing the head was delivered atraumatically followed by the anterior shoulder, posterior shoulder, then the remainder of the infant's body. A female infant was delivered with APGARS of 8 at 1 minute and 9 at 5 minutes. The infant was placed on its mother's chest . After the cord finished pulsating, the umbilical cord was clamped times two and cut. The placenta delivered intact with three vessel cord. Placenta was not sent to pathology. Thirty units of Pitocin were added to the IV fluid and allowed to run freely. Uterine massage was performed until uterus was deemed firm. Upon inspection of the perineum, a first degree laceration was noted which was repaired with 3-0 Vicryl with a single stitch. Upon re-inspection the patient was hemostatic. Uterus again massaged and found to be firm. Needle and sponge counts were correct. Patient was stable and allowed to recover in L&D room. Infant was stable and remained in room with mother. weight 4067 g
[2022-05-15] MEDS ORDERED: LACTATED RINGERS 1,000 ML IV SCH (09:00)
[2022-05-15] MEDS: IBUPROFEN 600 MG TABLET PO SCH ×4 (10:08→21:36)
[2022-05-15] MEDS: ACETAMINOPHEN 500 MG TABLET PO SCH ×4 (10:09→21:38)
[2022-05-16] MEDS: IBUPROFEN 600 MG TABLET PO SCH (04:36)
[2022-05-16] MEDS: ACETAMINOPHEN 500 MG TABLET PO SCH ×2 (05:30→08:06)
[2022-05-16 08:08] VITALS: BP 114/63
--- NOTE | 2022-05-16 08:56 | DISCHARGE SUMMARY ---
Discharge Summary Admit Date: 05/14/22 Discharge Date: 05/16/22 Discharging Provider: Mark Shankar MD Code Status: Attempt Resuscitation Condition at Discharge: Good Discharge Disposition: 01 Home, Self Care - DIAGNOSES Admission Diagnoses: 31-year-old G2, P1 at 40 weeks gestation Induction of labor Discharge Diagnoses with Status of Each Condition: 40 weeks gestation Induction of labor Spontaneous vaginal delivery - HPI History of Present Illness: Subjective Patient reports she is doing well. Lochia appropriate. Denies heavy bleeding. Ambulating. Pelvic and abdominal pain well-controlled. Tolerating oral intake. Diet: Regular. Voiding without difficulty. Passing flatus. Denies BM. Patient is bonding with baby in room Breast feeding going well. Denies feeling lightheaded, dizzy or excessively fatigued. Objective General: Alert, oriented, no apparent distress. Cardiovascular: Regular rate. Regular rhythm. Lungs: No increased work of breathing. Abdomen: Uterus firm. Below umbilicus. No guarding or rebound. - HOSPITAL COURSE Hospital Course: Patient was admitted at 40 weeks gestation for induction of labor. She received oxytocin for induction. Category 1 tracing throughout. Epidural attempted, but too close to delivery. Unremarkable spontaneous vaginal delivery. She was discharged on day 1. - ALLERGIES Allergies/Adverse Reactions: Allergies Allergy/AdvReac Type Severity Reaction Status Date / Time No Known Drug Allergies Allergy Verified 12/31/21 18:29 - MEDICATIONS Home Medications: Ambulatory Orders Medication Instructions Recorded Confirmed hydrOXYzine HCL [Hydroxyzine HCl] 10 mg PO HS PRN 07/27/21 07/27/21 Ondansetron Odt [Zofran] 4 mg TL Q6H PRN #10 tablet 10/07/21 - LABS Result Diagrams: 05/14/22 15:32 - FOLLOW UP Follow Up: In 1 week with Mark Shankar MD - TIME SPENT Time Spent in Discharge (Minutes): 20
--- NOTE | 2022-05-16 08:58 | Discharge Plan ---
Discharge Plan Problem Reviewed?: Yes Disposition: Home, Self Care Condition: Good Diet: Regular Shower Restrictions: No Instruction Topics: Vaginal After No Smoking: If you smoke, Please STOP! Call for help. Follow-up with: Sheron Li PA-C [Primary Care Provider] - Mark Shankar MD [Provider Admit Priv/Credential] -
--- NOTE | 2022-05-16 10:51 | Labor Flowsheet ---
Labor Flowsheet Datetime Report Generated by CPN: 05/16/2022 10:51 Datetime: 05/16/2022 07:45 VITAL SIGNS NBP Sys/[place]/Mean (mmHg): 113 : 63 : 74 Pulse: 74 Datetime: 05/16/2022 04:15 SpO2 (%): 95 Datetime: 05/15/2022 12:57 Stage of : Datetime: 05/15/2022 10:31 Respirations: 18 Datetime: 05/15/2022 08:32 PAIN Pain Scale: 1 Pain Presence: Constant Pain Type: Ache Pain Location: Perineum Datetime: 05/15/2022 07:42 UTERINE ACTIVITY Monitor Mode: External Frequency (min): 2-3 Quality: Strong Duration (sec): 50-110 Pattern: Normal: <= 5 Contractions in 10 Minutes Resting Tone (Palpate): Relaxed ASSESSMENT A Monitor Mode: External US FHR Baseline Rate : 130 Variability: Moderate 6-25 bpm Accelerations: 15X15 Decelerations: Early; Variable Category: Category II Stage 2 Comments: baby Datetime: 05/15/2022 07:37 LaborFlag: Labor Datetime: 05/15/2022 07:36 STAGE 2 Pushing: Coached on Pushing Pushing Position: Pushing with Contractions; Pushing Lithotomy Pushing Progress: Descent with Pushing Datetime: 05/15/2022 07:31 VAGINAL EXAM Dilatation (cm): 10.0 Effacement (%): 100 Exam by: Dr. Raad Datetime: 05/15/2022 07:30 Patient Care Comments: Dr. Raad @ bedside Datetime: 05/15/2022 07:28 MEDICATIONS Pitocin (milliunits): Decreased to @ 6 Datetime: 05/15/2022 07:26 PATIENT CARE Patient Position/Activity: Semi-Fowlers Anesthesia Comments: unsuccessful epidural attempt Datetime: 05/15/2022 07:01 ANESTHESIA Anesthesia Plans: Epidural Epidural Positioning: Sitting Datetime: 05/15/2022 07:00 FHR Baseline Changes: No Baseline Change Provider Notified (Name): Raad Datetime: 05/15/2022 06:55 COMMUNICATION Communication: Report Given to @ Aletha Daniela RN Communication Comments: BS report given Datetime: 05/15/2022 06:44 Medication Comments: bolusing LR for epidural Datetime: 05/15/2022 06:43 Provider Reviewed Strip: No Notification Reason: Status Update; Pain; Patient Request Datetime: 05/15/2022 06:35 Comments: fht 140 Datetime: 05/15/2022 06:34 Monitor Interventions for FHR: Ultrasound Adjusted Datetime: 05/15/2022 06:00 I/O Interventions: Up to BR Datetime: 05/15/2022 05:51 Station: 0 Vaginal Bleeding: Normal Show Cervix, Consistency: Soft Cervix, Position: Anterior Datetime: 05/15/2022 05:18 Monitor Interventions for UA: [place] Adjusted Pitocin Checklist: At Least 1 Acceleration of 15 bpm x 15 Seconds in 30 Minutes or Adequate Variabi lity; No More than 1 Late Deceleration Occurred in Past 30 Minutes; No More than 2 Variable Decelerat ions > 60 Seconds in Duration and decreasing >60 bpm in 30 minutes; No More than 5 Uterine Contractio ns in 10 Minutes for any 20 Minute Interval; Uterus Palpates Soft between Contractions Datetime: 05/15/2022 04:16 Temperature (C): 36.7 Datetime: 05/15/2022 04:00 Contraction Comments: coiupling and tripling Datetime: 05/15/2022 00:01 Pain Goal: 8 Pain Relief Measures: Comfort Measures Pain Coping: Breathing Through Contractions; Declines Medication or Epidural Pain Assessment Comments: states contractions not as intense while standing Comfort Measures: Family Support Datetime: 05/14/2022 23:55 Vital Sign Comments: BP picked up during ctx pt standing
== END 2022-05-16 10:46 | disposition home or self-care (01) | DRG 807 ==
LOC: WFO 14:03 → FBP 14:07 → WFO 23:43
PROVIDERS: ADMIT Obstetrics & Gynecology; ATTEND Obstetrics & Gynecology
PROC: 3E033VJ Introduction of Other Hormone into Peripheral Vein, Percutaneous Approach (ICD-10-PCS; principal; 2022-05-14)
PROC: 10E0XZZ Delivery of Products of Conception, External Approach (ICD-10-PCS; 2022-05-15)
PROC: 0HQ9XZZ Repair Perineum Skin, External Approach (ICD-10-PCS; 2022-05-15)
DX: O70.0 First degree perineal laceration during delivery (principal); Z37.0 Single live birth; Z3A.40 40 weeks gestation of pregnancy
CPT/HCPCS: 36415; 85025; 86850; 86900; 86901; A9270; J7120

== ENCOUNTER 2023-07-01 10:13 | Outpatient (CLI) | payer OTHER ==
--- NOTE | 2023-07-01 16:21 | Ultrasound Report ---
LIMITED ULTRASOUND OF LEFT BREAST: 07/01/2023 CLINICAL: Palpable left breast lump. Comparison is made to exam dated: 07/01/2023 mammogram - [facility]. Color flow and real-time ultrasound of the left breast 2 o'clock region were performed. Musa scale i mages of the real-time examination were reviewed. No significant abnormalities were seen sonographically in the left breast at the palpable abnormality . IMPRESSION: NEGATIVE There is no sonographic evidence of malignancy. No mass at the left breast palpable abnormality. Exam findings were conveyed to the patient. Patient is advised to monitor for significant change. Cli nical follow-up as needed. Return to annual mammogram screening schedule is recommended. Usually to commence at age 40. This exam was interpreted at Station ID: [id number]. Electronically Signed By: Tomás Perez M.D. slc/:07/01/2023 11:12:28 Ultrasound BI-RADS: 1 Negative BI-RADS CATEGORY: (1) - 1 RECOMMENDATION: (ANNUAL) - Recommend routine annual screening mammography. [id number] return to screening LATERALITY: (B)
--- NOTE | 2023-07-01 16:21 | Mammography Report ---
BILATERAL DIGITAL DIAGNOSTIC MAMMOGRAM 3D/2D WITH SPOT COMPRESSION: 07/01/2023 CLINICAL: Baseline exam. Palpable left breast lump. No prior exams were available for comparison. Both breasts are heterogeneously dense, which may obscure small masses (category c / 51-75% glandular tissue). No significant masses, calcifications, or other findings are seen in either breast. IMPRESSION: INCOMPLETE: NEEDS ADDITIONAL IMAGING EVALUATION No mammographic evidence of malignancy. A targeted ultrasound is recommended and will immediately follow. Based on the Tyrer Cuzick model (a risk assessment model) the patients lifetime risk is 17.9% and he r 10 year risk is 0.7%. According to the ACR, ACS, and NCCN guidelines, an annual breast MRI exam maren ng with mammogram is recommended if the patients lifetime risk is 20% or greater. This exam was interpreted at Station ID: [id number]. NOTE: For mammograms, a report in lay terms will be sent to the patient. Approximately 15% of breast malignancies will not be visualized mammographically. In the management of a palpable breast mass, a negative mammogram must not discourage biopsy of a clinically suspicious lesion. Electronically Signed By: Tomás Perez M.D. slc/:07/01/2023 10:57:33 ACR BI-RADS Category 0: Incomplete 3340F PARENCHYMAL PATTERN: (D) - The breast(s) demonstrate(s) heterogeneously dense fibroglandular parkymy ma. BI-RADS CATEGORY: (0) - 0 Ultrasound [id number] Immediate follow-up LATERALITY: (B)
== END 2023-07-01 10:14 | disposition home or self-care (01) ==
LOC: DI 10:13
PROVIDERS: ATTEND Nurse Practitioner Family
DX: N63.21 Unspecified lump in the left breast, upper outer quadrant (principal); N64.4 Mastodynia